=== PATIENT | female | born 1960 | race Caucasian/White ===

== ENCOUNTER 2021-07-03 18:57 | Emergency (ER) | payer SELFPAY ==
[2021-07-03 19:04] VITALS: PULSE 74; RESP 20; TEMP 36.9; O2SAT 95; BMI 32.4
--- NOTE | 2021-07-03 19:24 | XRR_ITS ---
PROCEDURE INFORMATION: Exam: XR Right Wrist Exam date and time: 07/03/2021 7:40 PM Age: 60 years old Clinical indication: Pain; Wrist; Right; Additional info: Fall, injury, get mid forearm TECHNIQUE: Imaging protocol: XR Right wrist. Views: 3 or more views. COMPARISON: No relevant prior studies available. FINDINGS: Bones/joints: Normal. Soft tissues: Normal. XR/XR wrist RT min 3V* [id number] IMPRESSION: No acute findings.
--- NOTE | 2021-07-03 19:24 | XRR_ITS ---
PROCEDURE INFORMATION: Exam: XR Right Elbow Exam date and time: 07/03/2021 7:40 PM Age: 60 years old Clinical indication: Pain; Elbow; Right; Additional info: Fall, pain, get mid forearm TECHNIQUE: Imaging protocol: XR Right elbow. Views: 3 or more views. COMPARISON: CR (CHEST, ) 07/03/2021 7:36 PM FINDINGS: Bones/joints: There is a mildly impacted transverse fracture of the radial neck. A small joint effusion is present. Soft tissues: Normal. XR/XR elbow RT min 3V* [id number] IMPRESSION: Mildly impacted transverse fracture of the radial neck.
--- NOTE | 2021-07-03 19:24 | XRR_ITS ---
PROCEDURE INFORMATION: Exam: XR Right Shoulder Exam date and time: 07/03/2021 7:36 PM Age: 60 years old Clinical indication: Pain; Shoulder; Right; Additional info: Fall, pain TECHNIQUE: Imaging protocol: XR Right shoulder. Views: 2 or more views. COMPARISON: No relevant prior studies available. FINDINGS: Bones/joints: Normal. Soft tissues: Normal. XR/XR shoulder RT min 2V* [id number] IMPRESSION: No acute findings.
--- NOTE | 2021-07-03 19:25 | W.ED.FALL ---
HPI - Fall General: Chief Complaint: Fall Stated Complaint: Right arm pain from fall Time Seen by Provider: 07/03/21 19:13 Source: patient Mode of arrival: ambulatory Limitations: no limitations History of Present Illness: Patient is a 60-year-old female who presents to ED today for evaluation of her right upper extremity injury following a fall. Patient states she tripped over an uneven surface in her house and fell. She is not sure how she landed on the right upper extremity but complains of pain throughout the arm. She denies any other injury sustained during her fall. MD complaint: fall Onset (ago): hour(s) Fall from: standing Fall witnessed: yes, by family Place fall occurred: home Loss of consciousness: None Prolonged down time: no Symptoms prior to fall: none Context: tripped/slipped Location of injury - extremities: Right: shoulder, arm, elbow and forearm Associated symptoms-after fall: Reports no associated symptoms; Denies chest pain, headache(s) or neck pain Review of Systems Eyes: Denies: change in vision Card: Denies: chest pain or palpitations Resp: Denies: dyspnea Musc: Reports: extremity pain (R UE); Denies: neck pain, back pain or extremity swelling Neuro: Denies: headache(s), numbness in extremities, weakness in extremities or sensory changes Physical Exam Const: COMMON NORMALS: no acute distress, patient oriented x3, no limitations and alert GENERAL APPEARANCE: cooperative ORIENTATION/CONSCIOUSNESS: Yes awake, Yes oriented to person, Yes oriented to place and Yes oriented to time HENMT: COMMON NORMALS: normocephalic and atraumatic HEAD & SCALP: normal to inspection, normocephalic and atraumatic FACE & SINUS: normal facial exam Neck/C-Spine: COMMON NORMALS: full ROM CERVICAL SPINE: No pain with cervical ROM and No Cervical spine tenderness Chest: COMMONS NORMALS: normal inspection of the chest and normal palpation of entire chest wall Resp: COMMON NORMALS: normal respiratory effort and clear to auscultation bilaterally AUSCULTATION: clear to auscultation bilaterally Cardio: COMMON NORMALS: regular rate and regular rhythm RATE: regular rate RHYTHM: regular rhythm Back/Pelvis: COMMON NORMALS: thoracic and lumbar spine normal to inspection, no thoracic nor lumbar tenderness and thoraco-lumbar ROM normal Extremity: COMMON NORMALS: capillary refill normal, no joint enlargement and no clubbing, cyanosis or edema RIGHT UPPER EXTREMITY: Yes shoulder joint, Yes upper arm, Yes elbow joint, Yes lower arm and Yes wrist OTHER: pt has pain throughout her R UE and doesn't seem to be able to localize much unfortunately; she does admit that most of her discomfort seems to be focused around the elbow but has limited ROM of her shoulder as well as pain with palpation of forearm/wrist; her humerus and hand seem to be okay with palpation; no swelling or deformity noted anywhere on the extremity; NV intact Neuro: FRANC COMA SCALE: document GCS findings [place] coma scale eye opening: Spontaneous Franc coma scale verbal response: Orientated [place] coma scale motor response: Obey commands [place] coma scale total score: 15 COMMON NORMALS: patient oriented x3, moves all extremities, no focal motor deficits and no sensory deficits noted SENSORIUM/ORIENTATION: Yes alert, Yes oriented to person, Yes oriented to place and Yes oriented to time Skin: COMMON NORMALS: no rashes or lesions noted GENERAL SKIN EXAM: no rashes or lesions noted TRAUMA: no lacerations or abrasions Course Vital Signs: Vital signs: Vital Signs Temperature 98.5 F 07/03/21 19:04 Pulse Rate 80 07/03/21 20:17 Respiratory Rate 18 07/03/21 20:17 Blood Pressure 189/85 07/03/21 20:17 Pulse Oximetry 98 07/03/21 20:17 MDM - Fall Medical Decision Making XRs of R UE obtained and show radial head fracture. Patient will be placed on posterior elbow/sling and information placed to have her follow with orthopedics. Discharge Plan Discharge Patient Disposition: Home Clinical Impression: Closed fracture of head of right radius Qualifiers: Encounter type: initial encounter Fracture alignment: nondisplaced Qualified Code(s): S52.124A - Nondisplaced fracture of head of right radius, initial encounter for closed fracture Condition: Stable Prescriptions: New hydrocodone-acetaminophen 5-325 mg tablet 1 tab PO Q6H PRN (Reason: pain) Qty: 20 0RF Discharge Orders: Discharge ED (Routine); Ordered 07/03/21 Ordered By: Anali Melchor Referrals: Sorin Campos MD [Primary Care Provider] - Patient Instructions: Elbow Fracture (ED) Coding Level of Care Code ED [facility] [facility] [employer] Fwd Exam Comprehensive
[2021-07-03 19:29] VITALS: BP 214/89
[2021-07-03 20:17] VITALS: BP 189/85; PULSE 80; RESP 18; O2SAT 98
--- NOTE | 2021-07-04 10:04 | DCPLANNER ---
Addendum entered by Jennyfer Garcia 07/24/21 20:20: Patient had a follow up appointment scheduled for 07.05.21 with Lee Masterson at ortho - patient did attend appointment. Addendum entered by Jennyfer Garcia 07/05/21 07:46: Patient has a follow up appointment scheduled for June at 2:00 with Lee BUSTILLOS, [facility]. Clinic will call patient with appointment information. Original Note: clinical laboratory manager had message to schedule a follow up appointment for patient with ortho. clinical laboratory manager sent patients information to the front staff at ortho. Patients information will be printed and reviewed. Clinic will call patient with appointment information.
== END 2021-07-03 20:20 | disposition home or self-care (01) ==
PROVIDERS: Emergency Provider Physician Assistant; PCP Family Medicine
DX: S52.124A Nondisplaced fracture of head of right radius, initial encounter for closed fracture (principal); W01.0XXA Fall on same level from slipping, tripping and stumbling without subsequent striking against object, initial encounter
CPT/HCPCS: 29105; 73030; 73080; 73110; 99283

== ENCOUNTER → 2021-07-05 13:41 | Outpatient (BNVA) | payer SELFPAY | PROVIDERS: PCP Family Medicine; Referring Provider Physician Assistant; Visit Provider Physician Assistant | DX: S52.121A Displaced fracture of head of right radius, initial encounter for closed fracture (principal); X58.XXXA Exposure to other specified factors, initial encounter | CPT/HCPCS: 73070 ==

== ENCOUNTER → 2021-07-24 13:33 | Outpatient (BNVA) | payer SELFPAY | PROVIDERS: PCP Family Medicine; Visit Provider Physician Assistant | DX: S52.121A Displaced fracture of head of right radius, initial encounter for closed fracture (principal); X58.XXXA Exposure to other specified factors, initial encounter | CPT/HCPCS: 73080 ==

== ENCOUNTER → 2021-08-21 10:16 | Outpatient (BNVA) | payer SELFPAY | PROVIDERS: PCP Family Medicine; Visit Provider Physician Assistant | DX: S52.121A Displaced fracture of head of right radius, initial encounter for closed fracture (principal); X58.XXXA Exposure to other specified factors, initial encounter | CPT/HCPCS: 73080 ==

== ENCOUNTER 2022-01-10 15:35 | Outpatient (CLI) | payer SELFPAY ==
--- NOTE | 2022-01-10 16:02 | XR_ITS ---
WS: [id number] Mandible series, 5 views, 01/10/2022 Clinical Data: fall w/ facial trauma, Comparison: None. Findings: The mandibular ramus and symphysis are intact. No fractures or dislocations are seen. The temporomand ibular joints are within the articular fossa. The maxilla shows no abnormalities. The patient is antonia veloz. XR/XR mandible min 4V [id number] Impression: Negative mandible series.
== END 2022-01-10 15:36 | disposition home or self-care (01) ==
PROVIDERS: PCP Family Medicine; Visit Provider Family Medicine
DX: R68.84 Jaw pain (principal); W19.XXXA Unspecified fall, initial encounter
CPT/HCPCS: 70110

== ENCOUNTER → 2022-07-23 13:41 | Outpatient (BNVA) | payer SELFPAY | PROVIDERS: PCP Family Medicine; Visit Provider Family Medicine | DX: M19.90 Unspecified osteoarthritis, unspecified site (principal) | CPT/HCPCS: 85025; 85651; 86140; 86160; 86162; 86235; 86255; 86376; 86431 ==

== ENCOUNTER → 2022-08-19 15:41 | Outpatient (BNVA) | payer SELFPAY | PROVIDERS: PCP Family Medicine; Visit Provider Family Medicine | DX: D72.819 Decreased white blood cell count, unspecified (principal) | CPT/HCPCS: 85025; 86140 ==

== ENCOUNTER → 2022-09-19 12:37 | Outpatient (BNVA) | payer SELFPAY | PROVIDERS: PCP Family Medicine; Visit Provider Family Medicine | DX: D72.819 Decreased white blood cell count, unspecified (principal) | CPT/HCPCS: 85025 ==

== ENCOUNTER 2022-10-23 13:48 | Oncology outpatient (recurring) (ONCR) | payer SELFPAY ==
[2022-10-23 16:00] LABS: Reticulocyte % 2.1 % (0.5-2.0)
[2022-10-23 16:34] LABS: Ferritin 91 ng/mL (15-150)
[2022-10-23 16:50] LABS: Folate Level 10.4 ng/mL (4.8-37.3); Vitamin B12 515 pg/mL (232-1245)
[2022-10-23 16:52] LABS: Hepatitis A Antibody IgM Non-Reactive (Nonreactive); Hepatitis B Core AB, Total Non-Reactive (Nonreactive); Hepatitis B Surface AB 6.6 (11.5-1000); Hepatitis B Surface Antigen Non-Reactive (Nonreactive)
[2022-10-25 14:36] LABS: EBV Early Antigen AB IGG >150.00 U/mL; EBV IGG TEST >750.00 U/mL; EBV IGM TEST <36.00 U/mL
[2022-10-29 10:40] LABS: Erythropoietin 10.9 mIU/mL (2.6-18.5)
== END 2022-10-28 23:59 | disposition home or self-care (01) ==
PROVIDERS: PCP Family Medicine; Visit Provider Internal Medicine Medical Oncology
DX: D72.819 Decreased white blood cell count, unspecified (principal); D64.9 Anemia, unspecified; D69.6 Thrombocytopenia, unspecified
CPT/HCPCS: 36415; 82607; 82668; 82728; 82746; 85045; 86663; 86664; 86665; 86705; 86706; 86709; 87340

== ENCOUNTER 2022-10-31 07:08 | Outpatient (CLI) | payer SELFPAY ==
--- NOTE | 2022-10-31 07:45 | US_ITS ---
WS: [id number] Complete ABDOMINAL ULTRASOUND HISTORY: Leukopenia and thrombocytopenia COMPARISON: 12/11/2006 Liver: 16.9 cm in length. Normal size liver and echogenicity. No bile duct dilatation or mass. Portal Vein: Normal hepatopetal flow with monophasic waveform. Gallbladder: Status post cholecystectomy. CBD: 0.3 cm Pancreas: Normal size and echogenicity. Right kidney: 9.2 cm x 4.9 x 5.6 cm. Cortex:1.3 cm. Normal size and echogenicity. No hydronephrosis or mass. Left kidney: 9.9 cm x 4.6 cm x 4.4 cm. Cortex: 1.1 cm. Normal size and echogenicity. No hydronephrosis or mass. Spleen: Spleen is enlarged measuring 15.5 cm in length. Normal concavity persists at the hilum. No sp lenic mass. No adjacent fluid. Aorta and IVC: Unremarkable abdominal aorta and IVC. US/US abdomen complete* [id number] Impression: 1. Moderate splenomegaly. Spleen measures 15.5 cm in length. Normal appearing spleen was noted on a prior CT from 2006. 2. Prior cholecystectomy. 3. Otherwise negative.
== END 2022-10-31 07:09 | disposition home or self-care (01) ==
PROVIDERS: PCP Family Medicine; Visit Provider Internal Medicine Medical Oncology
DX: D72.819 Decreased white blood cell count, unspecified (principal); R16.1 Splenomegaly, not elsewhere classified
CPT/HCPCS: 76700

== ENCOUNTER → 2022-12-19 12:00 | Outpatient (BNVA) | payer SELFPAY | PROVIDERS: PCP Family Medicine; Visit Provider Family Medicine | DX: D69.6 Thrombocytopenia, unspecified (principal); D64.9 Anemia, unspecified; F41.9 Anxiety disorder, unspecified; I10 Essential (primary) hypertension | CPT/HCPCS: 85025 ==

== ENCOUNTER → 2023-02-04 10:06 | Outpatient (BNVA) | payer SELFPAY | PROVIDERS: PCP Family Medicine; Visit Provider Internal Medicine Rheumatology | DX: Z79.899 Other long term (current) drug therapy (principal); M19.90 Unspecified osteoarthritis, unspecified site; Z11.1 Encounter for screening for respiratory tuberculosis; Z11.59 Encounter for screening for other viral diseases; M45.6 Ankylosing spondylitis lumbar region; M17.11 Unilateral primary osteoarthritis, right knee | CPT/HCPCS: 36415; 73130; 73562; 73630; 80076; 82306; 82565; 83520; 85025; 85651; 86140; 86200; 86480; 86704; 86803; 86812; 87340 ==

== ENCOUNTER 2023-04-02 12:17 | Outpatient (CLI) | payer SELFPAY ==
[2023-04-02 12:41] LABS: Basophils # 0.1 10^3/uL (0.0-0.1); Basophils % 1.2 %; Eosinophils # 0.2 10^3/uL (0.0-0.8); Eosinophils % 4.3 %; Hematocrit 33.5 % (36-47); Lymphocytes % 20.2 %; Mean Corpuscular Hemoglobin 28.9 pg (27-33); Mean Platelet Volume 9.3 fL (7.4-10.4); Monocytes # 0.4 10^3/uL (0.2-0.9); Monocytes % 7.4 %; Neutrophils # 3.23 10^3/uL (1.8-7.7); Neutrophils % 66.5 %; Nucleated Red Blood Cells % 0 %; Platelet Count 189 10^3/cmm (157-399); Red Blood Count 3.94 10^6/uL (3.85-5.65); Red Cell Distribution Width 14.8 % (12.1-15.1); White Blood Count 4.86 10^3/uL (3.29-11.43)
[2023-04-02 13:06] LABS: Alanine Aminotransferase 11 U/L (0-33); Albumin Level 3.7 g/dL (3.5-5.2); Alkaline Phosphatase 84 U/L (35-105); Aspartate Amino Transferase 18 U/L (0-32); C Reactive Protein 19.6 mg/L (0.0-4.9); Globulin 3.6 g/dL (1.3-4.6); Glomerular Filtration Rate 35.2 mL/min (90-130); Total Bilirubin 1.1 mg/dL (0.15-1.2); Total Protein 7.3 g/dL (6.6-8.7)
== END 2023-04-02 12:18 | disposition home or self-care (01) ==
LOC: LAB 12:18
PROVIDERS: PCP Family Medicine; Visit Provider Internal Medicine Rheumatology
DX: Z79.899 Other long term (current) drug therapy (principal); M19.90 Unspecified osteoarthritis, unspecified site
CPT/HCPCS: 36415; 80076; 82565; 85025; 86140

== ENCOUNTER 2023-04-10 10:46 | Outpatient (CLI) | payer OTHER, SELFPAY ==
[2023-04-10 11:26] LABS: Basophils # 0.1 10^3/uL (0.0-0.1); Basophils % 1.4 %; Eosinophils # 0.4 10^3/uL (0.0-0.8); Eosinophils % 7.1 %; Hematocrit 33.3 % (36-47); Lymphocytes # 1.2 10^3/uL (0.8-4.8); Lymphocytes % 22.8 %; Mean Corpuscular HGB Conc 32.7 g/dL (30-55); Mean Corpuscular Hemoglobin 28.5 pg (27-33); Mean Corpuscular Volume 87.2 fl (85-98); Mean Platelet Volume 9.5 fL (7.4-10.4); Monocytes # 0.4 10^3/uL (0.2-0.9); Monocytes % 7.9 %; Neutrophils # 3.03 10^3/uL (1.8-7.7); Neutrophils % 59.6 %; Nucleated Red Blood Cells % 0 %; Platelet Count 183 10^3/cmm (157-399); Red Blood Count 3.82 10^6/uL (3.85-5.65); Red Cell Distribution Width 14.5 % (12.1-15.1); White Blood Count 5.08 10^3/uL (3.29-11.43)
[2023-04-10 11:42] LABS: Alanine Aminotransferase 15 U/L (0-33); Albumin Level 3.7 g/dL (3.5-5.2); Alkaline Phosphatase 90 U/L (35-105); Aspartate Amino Transferase 23 U/L (0-32); Blood Urea Nitrogen 8 mg/dL (8-23); Globulin 3.6 g/dL (1.3-4.6); Glomerular Filtration Rate 72.7 mL/min (90-130); Total Bilirubin 0.5 mg/dL (0.15-1.2); Total Protein 7.3 g/dL (6.6-8.7)
== END 2023-04-10 10:47 | disposition home or self-care (01) ==
LOC: LAB 10:50
PROVIDERS: PCP Family Medicine; Visit Provider Internal Medicine Rheumatology
DX: M19.90 Unspecified osteoarthritis, unspecified site (principal); Z79.899 Other long term (current) drug therapy
CPT/HCPCS: 36415; 80076; 82565; 84520; 85025; 86140

== ENCOUNTER 2023-05-08 14:23 | Outpatient (CLI) | payer OTHER, SELFPAY ==
--- NOTE | 2023-05-08 14:26 | XR_ITS ---
WS: [id number] XR wrist RT 2V [id number] REASON FOR EXAM: right wrist pain FINDINGS: No fracture identified. Mild to moderate narrowing of the radial scaphoid joint with moderate subchondral of the radius. Intercarpal joints are normal. No abnormality of the carpal bones. IMPRESSION: No acute abnormality. 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
== END 2023-05-08 14:24 | disposition home or self-care (01) ==
LOC: RAD 14:23
PROVIDERS: PCP Family Medicine; Visit Provider Family Medicine
DX: M79.89 Other specified soft tissue disorders (principal); M19.031 Primary osteoarthritis, right wrist; S52.124D Nondisplaced fracture of head of right radius, subsequent encounter for closed fracture with routine healing; X58.XXXD Exposure to other specified factors, subsequent encounter; I95.9 Hypotension, unspecified
CPT/HCPCS: 73100; 80053; 85007; 85025; 85651; 86140

== ENCOUNTER 2023-05-09 10:45 | Inpatient (IN) | payer SELFPAY ==
[2023-05-09] VITALS (7 sets, daily range): BP systolic 119–152; BP diastolic 57–73; PULSE 90–110; RESP 16–19; TEMP 37.1; O2SAT 92–97; BMI 32.8
--- NOTE | 2023-05-09 11:47 | W.ED.RECABL ---
HPI - Recheck/Abnormal Lab/Rx General: Chief Complaint: Recheck/Abnormal Lab/Rx Stated Complaint: dr campos sent, abnormal labs Time Seen by Provider: 05/09/23 11:23 History of Present Illness: 62-year-old female who presents to the emergency room at the urging of her primary care physician secondary to lab work. She says over the last few weeks she has had swelling in her shoulder that is gone down her arm and into her wrist. She had extensive lab work done yesterday to work this up by her primary care provider. She was post have an ultrasound today, but was called and told to come to the emergency room for admission because of abnormal lab work. My review of labs from yesterday shows a sodium of 122. She has been feeling weak. No documented fevers. No cough. No abdominal pain. No vomiting. BUN and creatinine were 35 and 1.3. Hemoglobin is 9.7. She does not report any recent black tarry stools. [facility] ED PFSH: Medical History (Updated 05/09/23 @ 17:08 by Eri Gaines MD) Thrombocytopenia Lupus Anxiety Restless leg syndrome Hypertension Fracture of radial head, right, closed FH: bilateral hip replacements Immunization counseling High risk medication use Pancytopenia Inflammatory arthritis Depression Surgical History History of delivery x2 Family History Other Unknown family medical history Social History Smoking and tobacco/nicotine status: never used tobacco/nicotine Alcohol intake: never Course Vital Signs: Vital signs: Vital Signs Temperature 98.7 F 05/09/23 11:12 Pulse Rate 104 H 05/09/23 16:09 Respiratory Rate 16 05/09/23 16:09 Blood Pressure 134/70 05/09/23 16:09 Pulse Oximetry 93 05/09/23 16:09 Oxygen Delivery Me thod Room Air 05/09/23 11:12 MDM - Recheck/Abnormal Lab/Rx Medical Decision Making Medical decision making: Differential diagnosis including but not limited to: Quite a complex patient. Initial issues were with right arm swelling and pain. Also with weakness. Sent with abnormal lab work primarily hyponatremia. Repeating a CBC and a BMP here today. Urinalysis and drug screen are being ordered. Review of lab work shows no leukocytosis. Stable anemia at 9.6. She has a sodium of 122. I have no previous sodium readings. Her BUN and creatinine continue to rise from yesterday she is 54 and 2 today. Drug screen shows benzodiazepines. CT of the abdomen pelvis and chest without contrast. 1. Extensive intramuscular edema involving the LEFT shoulder musculature with mild subcutaneous soft tissue induration extending to the LEFT lower neck. No visualized fractures of the LEFT shoulder although incompletely visualized. No evidence of osteomyelitis. Consider vascular ultrasound for DVT and superficial thrombophlebitis. 2. Lungs are well aerated with slight subsegmental atelectasis in the lung bases. No other acute chest findings. 3. Hepatomegaly and splenomegaly with evidence of portal venous hypertension. Recommend correlation with liver function tests. 4. Prior cholecystectomy. 5. Noncontrast kidneys appear normal. No hydronephrosis or renal cortical atrophy. 6. No other acute findings. Lab Data 05/09/23 11:42 05/09/23 11:42 Laboratory Results WBC 5.46 10^3/uL (3.29-11.43) 05/09/23 11:42 RBC 3.26 10^6/uL (3.85-5.65) L 05/09/23 11:42 Hgb 9.60 g/dL (11.27-16.99) L 05/09/23 11:42 Hct 28.3 % (36-47) L 05/09/23 11:42 MCV 86.8 fl (85-98) 05/09/23 11:42 MCH 29.4 pg (27-33) 05/09/23 11:42 MCHC 33.9 g/dL (30-55) 05/09/23 11:42 RDW 13.9 % (12.1-15.1) 05/09/23 11:42 Plt Count 187 10^3/cmm (157-399) 05/09/23 11:42 MPV 10.3 fL (7.4-10.4) 05/09/23 11:42 Neut % (Auto) 85.6 % 05/09/23 11:42 Lymph % (Auto) 5.3 % 05/09/23 11:42 [place] % (Auto) 3.8 % 05/09/23 11:42 Eos % (Auto) 2.2 % 05/09/23 11:42 Baso % (Auto) 0.9 % 05/09/23 11:42 Neut # (Auto) 4.67 10^3/uL (1.8-7.7) 05/09/23 11:42 Lymph # (Auto) 0.3 10^3/uL (0.8-4.8) L 05/09/23 11:42 Frederick # (Auto) 0.2 10^3/uL (0.2-0.9) 05/09/23 11:42 Eos # (Auto) 0.1 10^3/uL (0.0-0.8) 05/09/23 11:42 Baso # (Auto) 0.1 10^3/uL (0.0-0.1) 05/09/23 11:42 Nucleated RBC % (auto) 0 % 05/09/23 11:42 Nucleated RBCs # 0.0 /100WBC 05/09/23 11:42 ESR 49 mm/hr (0-15) H 05/09/23 11:40 Specimen Type Arterial 05/09/23 12:00 Sample Site Radial, right 05/09/23 12:00 ABG pH 7.44 (7.35-7.45) 05/09/23 12:00 ABG pCO2 25.9 mmHg (35-45) L 05/09/23 12:00 ABG pO2 71.6 mmHg (80.0-100.0) L 05/09/23 12:00 ABG PO2/FiO2 Ratio 0 05/09/23 12:00 ABG HCO3 17.5 mmol/L (22-26) L 05/09/23 12:00 ABG O2 Saturation 95.9 05/09/23 12:00 ABG Base Excess -5.5 mmol/L (-2.0-2.0) L 05/09/23 12:00 Roc Test Pos 05/09/23 12:00 A-a O2 Gradient 5.7 mmHg (5-10) 05/09/23 12:00 Hematocrit 31.5 % (37-47) L 05/09/23 12:00 Hgb O2 Saturation 94.2 % (95-100) L 05/09/23 12:00 Carboxyhemoglobin 1.3 %THgb (0.4-20.1) 05/09/23 12:00 Methemoglobin 0.6 % (0.4-1.5) 05/09/23 12:00 Total Hemoglobin 10.3 g/dL (12-16) L 05/09/23 12:00 Sodium 124.0 mmol/L (131-143) L 05/09/23 12:00 Potassium 3.8 mmol/L (3.5-5.0) 05/09/23 12:00 Glucose 198.0 mg/dL (70-115) H 05/09/23 12:00 Ionized Calcium 1.1 mmol/L (1.1-1.4) 05/09/23 12:00 O2 Delivery Device Room air 05/09/23 12:00 FiO2 21.0 % 05/09/23 12:00 Metal Neutralizer ID [place] 05/09/23 12:00 Sodium 122 mmol/L (136-145) L 05/09/23 11:42 Potassium 4.1 mmol/L (3.5-5.1) 05/09/23 11:42 Chloride 87 mmol/L (98-107) L 05/09/23 11:42 Carbon Dioxide 16 mmol/L (22-29) L 05/09/23 11:42 Anion Gap 23.1 (5-19) H 05/09/23 11:42 BUN 54 mg/dL (8-23) H 05/09/23 11:42 Creatinine 2.0 mg/dL (0.5-0.9) H 05/09/23 11:42 GFR Calculation 25.2 mL/min (90-130) L 05/09/23 11:42 Glucose 208 mg/dL (65-115) H 05/09/23 11:42 Calculated Osmolality 275 mOsm/kg (285-295) L 05/09/23 11:42 Calcium 8.1 mg/dL (8.5-10.5) L 05/09/23 11:42 Urine Color Yellow (Yellow) 05/09/23 11:50 Urine Appearance Hazy (CLEAR) A 05/09/23 11:50 Urine pH 5 (5-7) 05/09/23 11:50 Ur Specific [place] 1.020 (1.005-1.030) 05/09/23 11:50 Urine Protein Trace (Negative) 05/09/23 11:50 Urine Glucose (UA) Norm (Normal) 05/09/23 11:50 Urine Ketones 1+ (Negative) H 05/09/23 11:50 Urine Blood 3+ (Negative) H 05/09/23 11:50 Urine Nitrate Negative (Negative) 05/09/23 11:50 Urine Bilirubin 1+ (Negative) H 05/09/23 11:50 Urine Urobilinogen 1 mg/dL (Negative) H 05/09/23 11:50 Ur Leukocyte Esterase 1+ (Negative) H 05/09/23 11:50 Urine RBC 15-25 /hpf (0-2) H 05/09/23 11:50 Urine WBC >100 /hpf (0-5) H 05/09/23 11:50 Ur Squamous Epith Cells 55-80 /hpf (0-5) H 05/09/23 11:50 Amorphous Sediment Not Reportable 05/09/23 11:50 Urine Bacteria 2+ /hpf (NONE) H 05/09/23 11:50 Urine Opiates Screen Negative ng/mL (Negative) 05/09/23 11:50 Ur Barbiturates Screen Negative ng/mL (Negative) 05/09/23 11:50 Ur Phencyclidine Scrn Negative ng/mL (Negative) 05/09/23 11:50 Ur Amphetamines Screen Negative ng/mL (Negative) 05/09/23 11:50 U Benzodiazepines Scrn Positive ng/mL (Negative) H 05/09/23 11:50 Urine Cocaine Screen Negative ng/mL (Negative) 05/09/23 11:50 U Marijuana (THC) Screen Negative ng/mL (Negative) 05/09/23 11:50 All radiology interpretation(s) finalized by discharge Other Data - IV fluids. IV Rocephin. -I discussed the patient with the hospitalist on-call who is admitting the patient. - Discussed findings and plan with patient. Answered any questions. - All laboratory values were reviewed and interpreted personally by myself, the ER physician - All imaging was reviewed and interpreted personally by myself, the ER physician. - Evaluation and treatment of this problem were appropriate in the emergency setting Discharge Plan Discharge Patient Disposition: Admitted As Inpatient Admit Provider: Anil Reed Clinical Impression: UTI (urinary tract infection), Hyponatremia, Renal failure Condition: Stable Coding Level of Care Code ED Pin Puller for [facility]
[2023-05-09 11:53] LABS: Basophils # 0.1 10^3/uL (0.0-0.1); Basophils % 0.9 %; Eosinophils # 0.1 10^3/uL (0.0-0.8); Eosinophils % 2.2 %; Hematocrit 28.3 % (36-47); Lymphocytes # 0.3 10^3/uL (0.8-4.8); Lymphocytes % 5.3 %; Mean Corpuscular HGB Conc 33.9 g/dL (30-55); Mean Corpuscular Hemoglobin 29.4 pg (27-33); Mean Corpuscular Volume 86.8 fl (85-98); Mean Platelet Volume 10.3 fL (7.4-10.4); Monocytes # 0.2 10^3/uL (0.2-0.9); Monocytes % 3.8 %; Neutrophils # 4.67 10^3/uL (1.8-7.7); Neutrophils % 85.6 %; Nucleated Red Blood Cells % 0 %; Platelet Count 187 10^3/cmm (157-399); Red Blood Count 3.26 10^6/uL (3.85-5.65); Red Cell Distribution Width 13.9 % (12.1-15.1); White Blood Count 5.46 10^3/uL (3.29-11.43)
[2023-05-09] MEDS: sodium chloride 0.9% 1,000 ML 999 ML IV (12:06)
[2023-05-09 12:07] LABS: ABG PCO2 25.9 mmHg (35-45); ABG PH Result 7.44 (7.35-7.45); Alveolar-Arterial Oxygen Gradi 5.7 mmHg (5-10); Arterial Blood Gas Hematocrit 31.5 % (37-47); Base Excess ABG -5.5 mmol/L (-2.0-2.0); Blood Gas Allen Test Pos; Blood Gas Operator Identificat WALCI; Blood Gas Sample Site Radial, right; Blood Gas Sample Type Arterial; Carboxyhemoglobin 1.3 %THgb (0.4-20.1); HCO3 ABG 17.5 mmol/L (22-26); HGB O2 Sat 94.2 % (95-100); Ionized Calcium Level - ABG 1.1 mmol/L (1.1-1.4); Methemoglobin 0.6 % (0.4-1.5); Oxygen Device ROOM AIR; Oxygen Saturation ABG 95.9; PO2 ABG 71.6 mmHg (80.0-100.0); PO2 FiO2 Ratio Arterial Blood 0; Potassium Level - ABG 3.8 mmol/L (3.5-5.0); Total Hemoglobin 10.3 g/dL (12-16)
[2023-05-09 12:13] LABS: Slide Review Slide Review Perform
[2023-05-09 12:27] LABS: Add Urine Culture? No; Bacteria Urine 2+ /hpf; Bilirubin Urine 1+ (Negative); Blood Urine 3+ (Negative); Glucose Urine UA Norm (Normal); Ketones Urine 1+ (Negative); Leukocyte Esterase Urine 1+ (Negative); Nitrate Urine Negative (Negative); Protein Urine Trace (Negative); RBC Urine 15-25 /hpf (0-2); Squamous Epithelial Cell Urine 55-80 /hpf (0-5); Urine Appearance Hazy (CLEAR); Urine Color Yellow (Yellow); Urobilinogen Urine 1 mg/dL (Negative); WBC Urine >100 /hpf (0-5); pH Urine 5 (5-7)
[2023-05-09 12:38] LABS: Anion Gap 23.1 (5-19); Blood Urea Nitrogen 54 mg/dL (8-23); Calcium 8.1 mg/dL (8.5-10.5); Carbon Dioxide 16 mmol/L (22-29); Chloride 87 mmol/L (98-107); Glomerular Filtration Rate 25.2 mL/min (90-130); Glucose 208 mg/dL (65-115); Osmolality Calculated 275 mOsm/kg (285-295); Potassium 4.1 mmol/L (3.5-5.1); Sodium 122 mmol/L (136-145)
--- NOTE | 2023-05-09 12:43 | CT_ITS ---
WS: [id number] CT CHEST, ABDOMEN, AND PELVIS TECHNIQUE: Noncontrast CT of the chest, abdomen, and pelvis with coronal and sagittal reformatted abhilash ges. CLINICAL INFORMATION: shoulder pain, renal failure COMPARISON: None. DLP: 1053.[address] scans at [facility] use at least one of these dose optimization techniques: automated e xposure control; mA and/or kV adjustment per patient size (includes targeted exams where dose is matc hed to clinical indication); or iterative reconstruction. CT CHEST: Diffuse soft tissue and intramuscular edema involving the LEFT shoulder musculature. Small amount of induration in the subcutaneous soft tissues. Recommend correlation for infection and cellulitis. No v isualized fractures but LEFT shoulder is incompletely visualized on this study. Consider ultrasound t o assess for thrombus and thrombophlebitis. No evidence of osteomyelitis in the visualized LEFT shoul yandel structures. Slight soft tissue induration in the LEFT subpectoral soft tissues and LEFT lower nec k. Lungs are well aerated. Subsegmental atelectasis in the lung bases. Normal caliber thoracic aorta. No mediastinal or hilar lymphadenopathy. No focal pneumonia or pleural fluid. CT ABDOMEN AND PELVIS Hepatomegaly. Noncontrast spleen demonstrates splenomegaly measuring 15.5 cm [id number]. Tiny esoph ageal hiatal hernia. Cholecystectomy clips. Fatty atrophy of the pancreas. Numerous portosystemic col laterals and varices in the upper abdomen and in the RIGHT abdomen suspicious for portal venous hyper tension. Recommend correlation with liver function tests. Normal caliber abdominal aorta. Mild aortic calcification. Adrenal glands are normal. Noncontrast kid neys appear normal. No significant atrophy. No hydronephrosis. No obstructing renal or ureteral calcu li. Bilateral THAs degrade images in the pelvis. Sigmoid diverticulosis. IMPRESSION: 1. Extensive intramuscular edema involving the LEFT shoulder musculature with mild subcutaneous soft tissue induration extending to the LEFT lower neck. No visualized fractures of the LEFT shoulder alt yessy incompletely visualized. No evidence of osteomyelitis. Consider vascular ultrasound for DVT and superficial thrombophlebitis. 2. Lungs are well aerated with slight subsegmental atelectasis in the lung bases. No other acute belle st findings. 3. Hepatomegaly and splenomegaly with evidence of portal venous hypertension. Recommend correlation with liver function tests. 4. Prior cholecystectomy. 5. Noncontrast kidneys appear normal. No hydronephrosis or renal cortical atrophy. 6. No other acute findings.
[2023-05-09 12:53] LABS: Amphetamines Screen Urine Negative (Negative); Barbiturates Screen Urine Negative (Negative); Benzodiazepines Screen Urine Positive (Negative); Cocaine Screen Urine Negative (Negative); Opiate Screen Urine Negative (Negative); PCP Screen Urine Negative (Negative); THC Screen Urine Negative (Negative)
--- NOTE | 2023-05-09 13:04 | PC.PHAR ---
pt and pts family verified pts medications-pt states she hasnt taken her blood pressure meds,prednisone or effexor in 2 weeks-pt states put her meds on hold 05/08/23-pt states when she was taking her hydralazine 2 weeks ago that she was taking 50mg bid and 25mg bid [facility] states not filled 50mg bid but states filled 25mg bid 04/08/23 and picked up states have a 25mg bid ready to pick up attendant filled 05/05/23-claudia @ [facility] states that eric from office called in Effexor plain 75mg daily filled 02/07/23 90d/s, rx written 08/19/22 effexor xr 75mg daily -pt states she takes lorazepam 1mg takes 2 tabs (2mg) hs - rx filled 04/04/23 30d/s 1mg po qam,1mg at noon and 2mg hs-notes are made in the pharmacy comments
[2023-05-09] MEDS: cefTRIAXone 1,000 MG in sodium chloride 0.9% (plus) 50 ML 100 MG IV (13:12)
--- NOTE | 2023-05-09 13:39 | USCV_ITS ---
Pamela Arrington Age: 62 Gender: F : 1960 Exam Date: 05/09/2023 13:31 Ordering Phys: Eri Gaines MD Technologist: Exam Location: [facility] [place] Indication: Swelling, edema HISTORY: Left arm pain, swelling, edema PROCEDURES: Venous duplex imaging was performed in only the left upper extremity. The following venous structures were evaluated: internal jugular vein, subclavian vein, axillary vein, and brachial veins. In addition, the basilic vein, cephalic vein, radial vein, and ulnar vein. Serial compression, augmentation maneuvers, and spectral Doppler flow evaluation were performed. FINDINGS: All other veins of the left upper extremity demonstrate normal flow dynamics with no evidence of deep vein thrombosis or superficial thrombophlebitis. CONCLUSIONS No evidence of thrombus of the left upper extremity veins. Chauncey Hernández MD (Electronically Signed) Final Date: 09 May 2023 17:24 S
--- NOTE | 2023-05-09 16:25 | P.HP_ITS ---
Providers/Chief Complaint 2 Primary Care Provider: Sorin Bone MD Chief Complaint: dr bone sent, abnormal labs History of Present Illness Pamela Arrington is a 62 year old female with past medical history of hypertension, rheumatoid arthritis currently on prednisone 5 mg twice daily for last month and a half, sent into the ER today by her primary care office because of abnormality in the lab which was drawn yesterday. As per patient for last couple of weeks she has noticed swelling and pain, left going all the way from shoulder down to the elbow resulting in weakness. She is not sure what brought up on the swelling. Denies any trauma, injury, animal bites. As per the family member she has also been getting transfused and weak since that time. She presented to her primary care's office for the same pain few days ago and she was given NSAIDs and Flexeril for the same. As per the patient she has not been taking any of her regular medications except for painkillers for last 2 weeks as nobody in her house except herself manages her medications and she was too weak and slightly confused to set up her pillbox. Day before yesterday while sitting in the couch she slipped off and landed on her right hand since then she has been having pain in her right wrist as well. She went to the primary care's office again for the same complaints and at that time blood work was done on which she was found to have hyponatremia with sodium down to 129 and creatinine up to 2 and she was asked to come to the ER. She does give history of decreased oral intake of foods but increased intake of water for last few weeks along with nausea but no vomiting. Does give history of decreased urine output with on and off dysuria but no diarrhea. For the left arm swelling patient denies any trauma, fall, animal or insect bite, history of breast cancer, breast mass but does give history of a blood draw earlier in March but she is not sure which arm the blood was taken from. Today the ER patient lethargic but not confused, mildly tachypneic, complaining of generalized malaise mostly in the left arm which is swollen from shoulder to elbow and right wrist along with left ankle. Review of Systems 2 General: Reports: 10 or more systems reviewed and unremarkable except in HPI and below Const: Denies: fever(s), chills, body aches, change in appetite, change in weight, malaise, night sweats, diaphoresis, change in sleep pattern, daytime sleepiness or snoring Eyes: Denies: change in vision, blurry vision, photophobia, eye discomfort or eye discharge ENMT: Denies: throat pain, enlarged tonsils, hoarseness, mouth pain, oral sores, dry mouth, tinnitus, nasal congestion or post nasal drip Card: Denies: chest pain, palpitations, irregular heart rhythm, edema, swelling of feet/ankles, lightheadedness, syncope, pre-syncope, dyspnea on exertion, orthopnea, leg pain with exertion or acrocyanosis Resp: Denies: dyspnea, productive cough, non-productive cough, wheezing, stridor, pain on inspiration, change in phlegm color, hemoptysis or chest congestion GI: Denies: abdominal pain, nausea, vomiting, hematemesis, coffee ground emesis, dysphagia, heartburn, diarrhea, constipation, bloating, GI cramping, change in bowel habits, pain on defecation, hematochezia or melena : Denies: flank pain, dysuria, urinary frequency, urinary urgency, urinary hesitancy, nocturia or hematuria Musc: Denies: neck pain, back pain, extremity pain, joint pain, joint swelling, joint redness, joint stiffness or limited range of motion Neuro: Denies: headache(s), numbness in extremities, weakness in extremities, sensory changes, lack of coordination, difficulty walking, frequent falls, dizziness, vertigo, confusion, Slurred speech present, difficulty communicating thoughts or seizure-like activity Psych: Denies: anxiety, depression, mood swings, panic attacks, hopelessness or irritability Endo: Denies: polyuria, polydipsia, tired all the time, cold intolerance, excessive sweating, flushing or heat intolerance Isra/Lymph: Denies: easy bruising or easy bleeding All/Imm: Denies: tongue swelling, facial swelling or acute wheezing Medications/Allergies Home Medications Medication Instructions Recorded Confirmed Last Taken Type hydralazine 50 mg tablet 50 mg PO BID #60 tabs 12/11/21 05/09/23 2 Weeks Ago Rx ~04/25/23 med on hold hydralazine 25 mg tablet 25 mg PO BID #60 tabs 10/15/22 05/09/23 2 Weeks Ago Rx ~04/25/23 med on hold prednisone 5 mg tablet 5 mg PO BID #60 tabs 04/02/23 05/09/23 Unknown Rx cyclobenzaprine 10 mg tablet 10 mg PO TID PRN muscle spasm #30 05/01/23 05/09/23 05/07/23 Rx tabs MED ON HOLD ondansetron 4 mg disintegrating 4 mg PO Q8H PRN nausea and 05/01/23 05/09/23 Unknown Rx tablet vomiting #30 tabs acetaminophen 500 mg tablet 500 - 1,000 mg PO Q6H PRN Pain 05/09/23 05/09/23 Unknown History diphenhydramine HCl 25 mg tablet 100 mg PO BEDTIME 05/09/23 05/09/23 05/07/23 History (Sleep Aid (diphenhydramine)) 50 mg ibuprofen 200 mg tablet 400 mg PO Q6H PRN Pain 05/09/23 05/09/23 Unknown History lisinopril 20 1 tab PO DAILY 05/09/23 05/09/23 2 Weeks Ago History mg-hydrochlorothiazide 12.5 mg ~04/25/23 tablet MED ON HOLD lorazepam 1 mg tablet 2 mg PO BEDTIME 05/09/23 05/09/23 05/07/23 History MED ON HOLD venlafaxine 75 mg tablet 75 mg PO DAILY 05/09/23 05/09/23 2 Weeks Ago History ~04/25/23 see pharmacy comment Allergies Allergy/AdvReac Type Severity Reaction Status Date / Time methotrexate Allergy Unknown ALGY-Rash Verified 05/09/23 12:57 PFSH Acute 2 PFSH: Medical History (Updated 05/09/23 @ 20:24 by Anil Reed MD) Thrombocytopenia Lupus Anxiety Restless leg syndrome Hypertension Fracture of radial head, right, closed FH: bilateral hip replacements Immunization counseling High risk medication use Pancytopenia Inflammatory arthritis Depression Surgical History History of delivery x2 Family History Other Unknown family medical history Social History Smoking and tobacco/nicotine status: never used tobacco/nicotine Alcohol intake: never Vitals/I&O/Wt Last Vital Signs Temp 98.7 F 05/09/23 11:12 Pulse 104 H 05/09/23 16:09 Resp 16 05/09/23 16:09 BP 134/70 05/09/23 16:09 Pulse Ox 93 05/09/23 16:09 O2 Del Method Room Air 05/09/23 11:12 Weight last 48 hrs Weight 90.718 kg Physical Exam 2 Narrative: General: Able to give history by herself, AO x3, dehydrated, sick appearing, chapped lips, in distress because of left shoulder pain, not moving her arms much HEENT: PERRLA, pupils bilaterally equal and reactive Chest: Normal vesicular breath sounds, no added sounds, equal but decreased air entry bilaterally CVS: S1-S2 regular, no murmurs, no tachycardia, no gallops, no rubs Abdomen: Soft, nontender, no organomegaly, bowel sounds present Neuro: No focal deficits, no facial deformity, AO x3, power 5/5 in all limbs Extremity: Left arm from shoulder down to elbow slightly tender and warm to touch without any erythema, more swelling on the medial aspect, tender shoulder joint left side, right wrist swollen and tender to touch but no limitation in range of mobility. Data 05/10/23 04:20 05/10/23 04:20 A&P Assessment and plan (1) Altered mental status: Most likely in setting of hyponatremia, dehydration and metabolic encephalopathy in setting of MAGDALENE. Patient also has not taken her steroids for last couple of weeks. Cannot rule out in setting of sepsis from UTI and possible cellulitis of the left arm. Frequent reorientation. Continue to monitor. Check TSH, vitamin B12 (2) Sepsis: SIRS: Tachycardic, tachypneic Source: Cellulitis of the left arm, UTI End organ damage: Acute kidney injury, altered mental status, hypotension Lactic acid within normal limits Patient did not receive full 30 mL/kg BW as to have a risk of fluid overload in setting of acute kidney injury Check blood culture, urine culture, MRSA swab, urine Legionella, bacterial antigen, procalcitonin. For now start on broad-spectrum antibiotics with IV vancomycin, IV Zosyn. Also started on azithromycin as below. Antibiotic should cover both cellulitis and UTI. (3) Hyponatremia: In setting of dehydration. Check urine lites, urine creatinine. Serum osmolality appreciated to be low. Normal saline at 100 cc/h. Repeat BMP in AM. (4) Acute kidney injury: Most likely in setting of dehydration along with home use of NSAIDs. Patient also at baseline is supposed to be on lisinopril, hydrochlorothiazide combination though she has not taken those medications for last few days. Medical reconciliation done for nephrotoxic drugs. Renal nondialysis diet Monitor BMP daily. Fluid as above. CT abdomen pelvis negative for obstructive nephropathy. Does have mild metabolic acidosis. Start on sodium bicarbonate 650 mg oral 3 times daily for now. (5) Hypotension: Borderline blood pressures. Most likely in setting of being of steroids recently but cannot rule out in setting of sepsis. Hydrocortisone 100 mg IV stat. Will check cortisol levels prior to steroids. Most likely restart home dose of prednisone in AM. Goal blood pressure less than 140/90 mmHg with mean over 65. Hold off on home antihypertensives for now. Probably (6) Left arm swelling: Unknown cause for now. Patient does have some signs of cellulitis. CT abdomen pelvis consistent with edema of subcutaneous tissue and musculature. Patient denies any trauma or insect bite. Patient does have pets. Check CT shoulder up to elbow without contrast. If not helpful will plan for MRI. Dopplers negative for DVT or SVT. For now start on broad-spectrum antibiotics with IV vancomycin, Zosyn and azithromycin to also cover for Pasteurella. (7) Cellulitis of left upper extremity: (8) UTI (urinary tract infection): Appreciate urinalysis. Check urine culture, blood culture. (9) Metabolic acidosis: In setting of acute kidney injury with dehydration. Monitor daily. (10) Chronic use of steroids: Check cortisol level. IV hydrocortisone one-time 100 mg stat followed by 5 mg twice daily of home dose from tomorrow depending on the clinical picture. Blood pressure do not improve we will continue IV hydrocortisone. (11) Anemia: Target hemoglobin more than 7. Continue to monitor. Check iron panel, vitamin B12 and folate levels. (12) Hypertension: Goal blood pressure less than 140/90 mmHg with mean over 65. Blood pressure soft for now. Hold off on home dose of hydralazine, lisinopril hydrochlorothiazide for now. Will restart as per goal blood pressures. Plan CODE STATUS: Discussed in detail with patient and patient's spouse at bedside. Spouse will be the DPOA. DNR/DNI. Regular diet Lovenox for DVT prophylaxis Protonix OPD prophylaxis Attestations 2 Medical Necessity Statement*: Admission for more than 2 midnights for management of acute kidney injury leading to metabolic acidosis, hyponatremia in setting of sepsis from left arm cellulitis, UTI in a patient on chronic steroids for inflammatory arthritis Diagnoses Altered mental status R41.82 Sepsis A41.9 Hyponatremia E87.1 Acute kidney injury N17.9 Hypotension I95.9 Left arm swelling M79.89 Cellulitis of left upper extremity L03.114 UTI (urinary tract infection) N39.0 Metabolic acidosis E87.20 Chronic use of steroids Anemia D64.9 Hypertension I10
[2023-05-09 16:54] LABS: Erythrocyte Sedimentation Rate 49 mm/hr (0-15)
[2023-05-09 17:10] LABS: Potassium, Radom Urine 45 mmol/L; Urine Creatinine 231 mg/dL (28-217); Urine Random Chloride 11 mmol/L; Urine Random Sodium 29 mmol/L
[2023-05-09 17:12] LABS: Cortisol Random 39.21 ug/dL (2.47-19.5)
[2023-05-09 17:15] LABS: Eosinophil Urine No Eosinophils Seen; Urine Eosinophil Count 0 (0-0)
[2023-05-09 17:23] LABS: C Reactive Protein 268.7 mg/L (0.0-4.9)
[2023-05-09] MEDS: hydrocortisone 100 mg/2 mL SDV IVP (17:42)
[2023-05-09] MEDS: pantoprazole 40 mg SDV IVP (18:36)
[2023-05-09] MEDS: enoxaparin 40 mg/0.4 mL Syringe SUBCUT (18:37)
[2023-05-09] MEDS: sodium chloride 0.9% 1,000 ML 100 ML IV (18:43)
--- NOTE | 2023-05-09 18:43 | CTR_ITS ---
PROCEDURE INFORMATION: Exam: CT Left Upper Extremity Without Contrast, Shoulder Exam date and time: 05/09/2023 8:51 PM Age: 62 years old Clinical indication: Pain and abnormal findings; Abnormal lab test; Other: Crp 268.70; Patient HX: Swelling of left shoulder with pain radiating to elbow. Crp of 268.70; Additional info: Left shoulder swelling, pain in chest wall and arm, , please include upto elbow TECHNIQUE: Imaging protocol: Computed tomography of the left upper extremity without contrast. Exam focused on the shoulder. Radiation optimization: All CT scans at this facility use at least one of these dose optimization techniques: automated exposure control; mA and/or kV adjustment per patient size (includes targeted exams where dose is matched to clinical indication); or iterative reconstruction. COMPARISON: [place] [id number] 05/09/2023 12:56 PM RADIATION DOSE METRICS: Total DLP (mGy-cm): 784.04 FINDINGS: Bones/joints: Mild acromioclavicular osteoarthritis. Normal glenohumeral joint. No fracture or destructive bony lesion. Facet arthropathy is partly visualized in the cervical spine. Visualized left ribs are normal. Soft tissues: There is a large fluid collection posterior and superior to the humeral head with a water density attenuation coefficient. Components of the fluid collection track into both the supraspinatus and infraspinatus muscles. Margins of the fluid collection are challenging to define on this noncontrast exam. There is edema and heterogeneous soft tissue density material in the supraclavicular fossa of unclear significance. There is subcutaneous edema surrounding the shoulder. No abnormal soft tissue gas. No radiopaque foreign body. CT/CT shoulder LT wo con* [id number] IMPRESSION: 1. There is a large fluid collection posterior to the humeral head which appears to be within and perhaps tracking into the supraspinatus and infraspinatus muscles. No convincing joint effusion. The fluid collection is water density. Margins are challenging to demonstrate without intravenous contrast. Ultrasound may be helpful. 2. There is edema and soft tissue distortion in the fat surrounding the shoulder and extending into the supraclavicular fossa, etiology unclear. Correlate with any history of recent trauma.
--- NOTE | 2023-05-09 18:46 | CTR_ITS ---
PROCEDURE INFORMATION: Exam: CT Left Upper Extremity Without Contrast, Upper Arm Exam date and time: 05/09/2023 8:56 PM Age: 62 years old Clinical indication: Upper arm; Patient HX: Swelling of left shoulder with pain radiating to elbow. Crp of 268.70; Additional info: Left shoulder swelling, pain in chest wall and arm TECHNIQUE: Imaging protocol: Computed tomography of the left upper extremity without contrast. Exam focused on the upper arm. Radiation optimization: All CT scans at this facility use at least one of these dose optimization techniques: automated exposure control; mA and/or kV adjustment per patient size (includes targeted exams where dose is matched to clinical indication); or iterative reconstruction. COMPARISON: CT shoulder LT wo con* [id number] 05/09/2023 8:51 PM RADIATION DOSE METRICS: Total DLP (mGy-cm): 1308.35 FINDINGS: Bones/joints: Intact humerus. Please see separate report regarding fluid collection surrounding the shoulder joint. Soft tissues: Distal to the shoulder, the musculature appears normal without abnormal fluid collection. No soft tissue gas or radiopaque foreign body. CT/CT humerus LT wo con* [id number] IMPRESSION: Intact humerus. Distal to the shoulder there are no abnormal fluid collections, and there is no soft tissue gas or radiopaque foreign body. Please see CT shoulder report regarding periarticular fluid collection.
[2023-05-09 18:56] LABS: Iron 19 ug/dL (37-145); Percent Saturation 10.9 % (20-50); Thyroid Stimulating Hormone 2.28 uIU/mL (0.27-4.20); Total Iron Binding Capacity 173 mcg/dl; Unsaturated Iron Binding 154 ug/dL (112-347)
[2023-05-09] MEDS: vancomycin 1,250 MG/250 ML PIGGYBACK 250 MG IV (19:15)
[2023-05-09] MEDS: sodium bicarbonate 650 mg Tablet PO (21:34)
[2023-05-09] MEDS: piperacillin-tazobactam 3.375 GM in sodium chloride 0.9% (plus) 50 ML IV (21:34)
[2023-05-10] VITALS (8 sets, daily range): BP systolic 131–159; BP diastolic 55–72; PULSE 65–89; RESP 18–19; TEMP 36.3–36.7; O2SAT 95–98
[2023-05-10] MEDS: piperacillin-tazobactam 3.375 GM in sodium chloride 0.9% (plus) 50 ML IV ×3 (04:11→20:44)
[2023-05-10 05:09] LABS: Basophils % 0.5 %; Eosinophils % 0.5 %; Lymphocytes # 0.3 10^3/uL (0.8-4.8); Lymphocytes % 7.5 %; Mean Corpuscular HGB Conc 33.3 g/dL (30-55); Mean Corpuscular Hemoglobin 29.1 pg (27-33); Mean Corpuscular Volume 87.3 fl (85-98); Mean Platelet Volume 10.3 fL (7.4-10.4); Monocytes # 0.2 10^3/uL (0.2-0.9); Monocytes % 5.8 %; Neutrophils # 3.48 10^3/uL (1.8-7.7); Neutrophils % 83.5 %; Nucleated Red Blood Cells % 0 %; Platelet Count 144 10^3/cmm (157-399); Red Blood Count 2.75 10^6/uL (3.85-5.65); Red Cell Distribution Width 14.3 % (12.1-15.1); White Blood Count 4.16 10^3/uL (3.29-11.43)
[2023-05-10 05:26] LABS: Estmated Average Glucose 126
[2023-05-10 05:30] LABS: Alanine Aminotransferase 24 U/L (0-33); Albumin Level 2.5 g/dL (3.5-5.2); Alkaline Phosphatase 95 U/L (35-105); Anion Gap 17.5 (5-19); Aspartate Amino Transferase 36 U/L (0-32); Blood Urea Nitrogen 44 mg/dL (8-23); Calcium 7.9 mg/dL (8.5-10.5); Carbon Dioxide 18 mmol/L (22-29); Chloride 99 mmol/L (98-107); Globulin 3.9 g/dL (1.3-4.6); Glomerular Filtration Rate 45.5 mL/min (90-130); Glucose 149 mg/dL (65-115); Magnesium 2.2 mg/dL (1.7-2.3); Osmolality Calculated 286 mOsm/kg (285-295); Phosphorus 4.9 mg/dL (2.5-4.5); Potassium 3.5 mmol/L (3.5-5.1); Sodium 131 mmol/L (136-145); Total Bilirubin 0.4 mg/dL (0.15-1.2); Total Protein 6.4 g/dL (6.6-8.7)
[2023-05-10 05:32] LABS: Chol HDL Ratio 7.78 mg/dL (0.0-4.40); Cholesterol 140 mg/dL (0-200); HDL Cholesterol 18 mg/dL (60-100); LDL Cholesterol Calculated 95 mg/dL (50-129); LDL HDL Ratio 5.28 RATIO (0.00-3.22); Triglycerides 137 mg/dL (0-150)
[2023-05-10] MEDS: sodium chloride 0.9% 1,000 ML 100 ML IV ×2 (05:36→15:54)
[2023-05-10 05:42] LABS: Folate Level 8.6 ng/mL (4.8-37.3)
[2023-05-10] MEDS: venlafaxine 75 mg Tablet PO (08:34)
[2023-05-10] MEDS: sodium bicarbonate 650 mg Tablet PO ×3 (08:34→20:44)
[2023-05-10] MEDS: acetaminophen 325 mg Tablet 650 MG PO ×2 (08:37→23:22)
[2023-05-10] MEDS: predniSONE 5 mg Tablet PO ×2 (11:11→18:02)
--- NOTE | 2023-05-10 11:51 | PC.CHAP ---
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 visit [] Patient/Family/Request visit [] Outpatient visit [] Follow-up visit [] Physician referral [] Code/Alert [] Routine visit [] Staff referral [] Actively dying [] Patient sleeping [] Family support [] [] Out of room [] Palliative care [] [] Receiving care in room [] Pre-surgical visit [] Trauma [] Long length of stay [] ICU visit [] Other: Relational/Emotional Strength [] Patient feels connected with others/family/visitors/staff [] Distress [] Loneliness/isolation [] Abandonment Spirituality of Patient [] Person of Am[place] [] Attends Church of their [place] [] Believes in Prayer [] Reads Bible or Yazdanism materials [] There are Spiritual issues to be addressed Gallery [employer] 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 Interventions [] Prayer [] Active listening [] Non-anxious presence [] Spiritual/emotional support [] Crisis/trauma care [] Spiritual counseling [] Bereavement support [] Provided bereavement packet [] Provided Bible/devotional materials [] Provided toy/stuffed animal, coloring book to patient or family member [] Provided Communion [] Anointing/[place] [] Salvation [] Completed spiritual assessment [] Other: Impact on Illness or Injury [] Angry [] Fearful [] Anxious [] Often cries [] Exhaustion [] Unable to work [] Unable to attend restorationism [] Unable to walk/stand [] Unable to read [] Unable to drive [] Unable to eat/drink [] Unable to sleep [] Unable to be with family [] Patient intubated [] Other: Summary Prayed with and over patient and 1 family member Time spent with patient
--- NOTE | 2023-05-10 13:44 | P.PN_ITS ---
Subjective 2 Subjective: No acute events overnight. Today morning seen with family at bedside. Patient states he is feeling better than yesterday. Looks a lot more awake and alert. Denies any nausea, vomiting, headache. Breathing better. Saturating well on room air. Has remained hemodynamically stable and afebrile. Less pain in the right wrist today. Vitals/I&O/Wt Last Vital Signs Temp 97.8 F 05/10/23 12:21 Pulse 67 05/10/23 12:21 Resp 19 H 05/10/23 12:21 BP 139/66 05/10/23 12:21 Pulse Ox 98 05/10/23 12:21 O2 Del Method Room Air 05/10/23 12:21 05/09/23 05/10/23 05/10/23 22:59 06:59 14:59 Intake Total 1530 / 1530 820 / 2350 410 / 410 Output Total 1000 / 1000 600 / 1600 Balance 530 / 530 220 / 750 410 / 410 Weight last 48 hrs Weight 95.481 kg Weight 93.979 kg Weight 89.675 kg Weight 90.718 kg Physical Exam 2 Narrative: General: Able to give history by herself, AO x3, dehydrated, sick appearing, chapped lips, in distress because of left shoulder pain, not moving her arms much HEENT: PERRLA, pupils bilaterally equal and reactive Chest: Normal vesicular breath sounds, no added sounds, equal but decreased air entry bilaterally CVS: S1-S2 regular, no murmurs, no tachycardia, no gallops, no rubs Abdomen: Soft, nontender, no organomegaly, bowel sounds present Neuro: No focal deficits, no facial deformity, AO x3, power 5/5 in all limbs Extremity: Left arm from shoulder down to elbow slightly tender and warm to touch without any erythema, more swelling on the medial aspect, tender shoulder joint left side, right wrist swollen and tender to touch but no limitation in range of mobility. Urinary Catheter Management: Nicole: Cath Placed During This Visit: yes Reason for Continuing Indwelling Catheter: Acute Urinary Retention or Obstruction Urinary Catheter Date of Insertion: 05/09/23 Urinary Catheter Time of Insertion: 18:56 Data 05/10/23 04:20 05/10/23 04:20 Micro: Microbiology 05/09/23 21:20 Blood Culture - Preliminary Blood SPECIMEN COLLECTED 05/09/23 21:15 Blood Culture - Preliminary Blood SPECIMEN COLLECTED A&P Assessment and plan (1) Altered mental status: Resolving. Most likely in setting of hyponatremia, dehydration and metabolic encephalopathy in setting of MAGDALENE. Patient also has not taken her steroids for last couple of weeks. Cannot rule out in setting of sepsis from UTI and possible cellulitis of the left arm. Frequent reorientation. Continue to monitor. Appreciate TSH, vitamin B12 (2) Sepsis: Resolving. SIRS: Tachycardic, tachypneic Source: Cellulitis of the left arm, UTI End organ damage: Acute kidney injury, altered mental status, hypotension Lactic acid within normal limits Patient did not receive full 30 mL/kg BW as to have a risk of fluid overload in setting of acute kidney injury Check blood culture, urine culture, MRSA swab, urine Legionella, bacterial antigen, procalcitonin. For now start on broad-spectrum antibiotics with IV vancomycin, IV Zosyn. Also started on azithromycin as below. Antibiotic should cover both cellulitis and UTI. (3) Hyponatremia: Sodium levels improving. Up to 131. In setting of dehydration. Appreciate urine lites, urine creatinine. Normal saline at 100 cc/h. Repeat BMP in AM. (4) Acute kidney injury: Creatinine down to 1.2. Most likely in setting of dehydration along with home use of NSAIDs. Patient also at baseline is supposed to be on lisinopril, hydrochlorothiazide combination though she has not taken those medications for last few days. Medical reconciliation done for nephrotoxic drugs. Renal nondialysis diet Monitor BMP daily. Fluid as above. CT abdomen pelvis negative for obstructive nephropathy. Does have mild metabolic acidosis. Continue with sodium bicarbonate 650 mg oral 3 times daily for now. (5) Hypotension: Blood pressures improving. Goal mean blood pressure more than 65 mmHg borderline blood pressures. Appreciate cortisol levels. Restart prednisone 5 mg twice daily at home dose. Goal blood pressure less than 140/90 mmHg with mean over 65. Hold off on home antihypertensives for now. (6) Left arm swelling: Appreciate CT of the shoulder. Consistent with fluid collection posterior to the humeral head tracking into supra and infraspinatus muscle with edema extending to supraclavicular fossa not resolving the joint. Will consult orthopedics. They recommend patient to have IR drainage for further workup and to rule out infected fluid collection. Unfortunately IR not available over the weekend. No concerns for septic joint for now. Physical therapy. MRI joint when available. Doppler negative for DVT or SVT. Continue with broad-spectrum antibiotics with IV vancomycin and Zosyn and azithromycin for now. Azithromycin to also cover for Pasteurella. (7) Cellulitis of left upper extremity: (8) UTI (urinary tract infection): Appreciate urinalysis. Follow urine culture, blood culture. (9) Metabolic acidosis: In setting of acute kidney injury with dehydration. Monitor daily. (10) Chronic use of steroids: Restarted home dose of prednisone. (11) Anemia: Target hemoglobin more than 7. Continue to monitor. Appreciate iron panel, vitamin B12 and folate levels. (12) Hypertension: Goal blood pressure less than 140/90 mmHg with mean over 65. Blood pressure soft for now. Hold off on home dose of hydralazine, lisinopril hydrochlorothiazide for now. Will restart as per goal blood pressures. Plan CODE STATUS: Discussed in detail with patient and patient's spouse at bedside. Spouse will be the DPOA. DNR/DNI. Renal nondialysis dysphagia level 5 diet Lovenox for DVT prophylaxis Protonix OPD prophylaxis PT/OT Attestations 2 Medical Necessity Statement*: Requires further hospitalization for management of UTI, left arm cellulitis with fluid collection around the left shoulder joint while infection is ruled out with IR drainage, acute kidney injury and hyponatremia Diagnoses Altered mental status R41.82 Sepsis A41.9 Hyponatremia E87.1 Acute kidney injury N17.9 Hypotension I95.9 Left arm swelling M79.89 Cellulitis of left upper extremity L03.114 UTI (urinary tract infection) N39.0 Metabolic acidosis E87.20 Chronic use of steroids Anemia D64.9 Hypertension I10
--- NOTE | 2023-05-10 16:00 | MRR_ITS ---
PROCEDURE INFORMATION: Exam: MR Left Upper Extremity Joint Without Contrast; Shoulder Exam date and time: 05/10/2023 4:57 PM Age: 62 years old Clinical indication: Pain; Shoulder; Left; Additional info: Left arm swelling and pain TECHNIQUE: Imaging protocol: Magnetic resonance imaging of the left upper extremity without contrast. Exam focused on the shoulder. COMPARISON: CT shoulder LT wo con* [id number] 05/09/2023 8:51 PM FINDINGS: Bones/joints: Glenohumeral articular surfaces are intact. No evidence of fracture. Small glenohumeral joint effusion. No evidence of osteomyelitis or convincing evidence of joint infection. Acromioclavicular articulation is intact without evidence of fracture or ligamentous disruption. Moderate AC joint osteoarthritis with small marginal osteophytes and capsular hypertrophy. Glenoid labrum: Grossly intact. If further detail is clinically warranted, consider correlation with follow-up outpatient MR arthrography. Bursae: Severe subacromial-subdeltoid bursitis. Supraspinatus tendon: Minor low-grade partial-thickness articular sided tear of the distal anterior-mid fibers, approximately 5 mm AP. Mild tendinosis. No high-grade or full-thickness tear. There is edema of the supraspinatus muscle. Infraspinatus tendon: Intact. There is edema of the infraspinatus muscle. Severe bursitis extends along the superficial surface of the infraspinatus/teres minor muscles. Subscapularis tendon: Intact. Teres minor tendon: Intact. There is edema of the teres minor and major muscles. Tendon of biceps brachii: Intact. Glenohumeral ligaments: Intact. Soft tissues: No evidence of fluid collection or hematoma. Severe subacromial-subdeltoid bursitis extends medially into the retroclavicular region where there are lobulations of the bursa and mild adjacent edema of the previous muscle. There is additional muscle edema of the deltoid. MR/MR shoulder LT wo con* [id number] IMPRESSION: 1. Severe subacromial-subdeltoid bursitis. No evidence of osteomyelitis or convincing evidence of joint infection. No evidence of abscess. 2. Multifocal muscle edema, which may be reactive secondary to the markedly inflamed subacromial-subdeltoid bursa. An autoimmune myositis could have a similar appearance in the proper clinical setting. Correlation with serum laboratory findings and rheumatologic evaluation is recommended. Fluid analysis of the bursal fluid may be helpful if clinically warranted. 3. Cuff is intact without high-grade or full-thickness tear. The findings were verbally communicated by telephone with JOVANNY Knox at 6:03 PM CRUISE DIRECTOR on 05/10/2023. The findings were acknowledged and understood.
[2023-05-10] MEDS: diphenhydrAMINE 25 mg Capsule PO (16:41)
[2023-05-10] MEDS: haloperidol inj 5 mg/mL INJ 1 mL 2 MG IVP (16:42)
[2023-05-10] MEDS: enoxaparin 40 mg/0.4 mL Syringe SUBCUT (18:02)
[2023-05-10] MEDS: pantoprazole 40 mg SDV IVP (18:02)
[2023-05-10] MEDS: azithromycin 500 MG in sodium chloride 0.9% 250 ML 250 MG IV (18:02)
[2023-05-10] MEDS: vancomycin 1,250 MG/250 ML PIGGYBACK 250 MG IV (19:03)
[2023-05-11] VITALS (12 sets, daily range): BP systolic 155–175; BP diastolic 69–79; PULSE 67–73; RESP 17–20; TEMP 36.3–36.9; O2SAT 95–97; BMI 36.2
[2023-05-11] MEDS: LORazepam 1 mg Tablet 0.5 MG PO (02:39)
[2023-05-11 03:55] LABS: Basophils % 0.4 %; Eosinophils % 0.4 %; Hematocrit 24.1 % (36-47); Lymphocytes # 0.5 10^3/uL (0.8-4.8); Lymphocytes % 8.8 %; Mean Corpuscular HGB Conc 33.2 g/dL (30-55); Mean Corpuscular Hemoglobin 29.4 pg (27-33); Mean Corpuscular Volume 88.6 fl (85-98); Mean Platelet Volume 10.3 fL (7.4-10.4); Monocytes # 0.3 10^3/uL (0.2-0.9); Monocytes % 5.8 %; Neutrophils # 4.48 10^3/uL (1.8-7.7); Neutrophils % 81.7 %; Nucleated Red Blood Cells % 0 %; Platelet Count 158 10^3/cmm (157-399); Red Blood Count 2.72 10^6/uL (3.85-5.65); Red Cell Distribution Width 14.2 % (12.1-15.1); White Blood Count 5.48 10^3/uL (3.29-11.43)
[2023-05-11 04:12] LABS: Alanine Aminotransferase 21 U/L (0-33); Albumin Level 2.4 g/dL (3.5-5.2); Alkaline Phosphatase 83 U/L (35-105); Aspartate Amino Transferase 31 U/L (0-32); Blood Urea Nitrogen 42 mg/dL (8-23); Calcium 7.6 mg/dL (8.5-10.5); Carbon Dioxide 19 mmol/L (22-29); Chloride 101 mmol/L (98-107); Globulin 3.7 g/dL (1.3-4.6); Glomerular Filtration Rate 50.3 mL/min (90-130); Glucose 103 mg/dL (65-115); Osmolality Calculated 287 mOsm/kg (285-295); Sodium 133 mmol/L (136-145); Total Bilirubin 0.5 mg/dL (0.15-1.2); Total Protein 6.1 g/dL (6.6-8.7)
[2023-05-11 04:13] LABS: Anion Gap 16.6 (5-19); Potassium 3.6 mmol/L (3.5-5.1)
[2023-05-11] MEDS: sodium chloride 0.9% 1,000 ML 100 ML IV (04:18)
[2023-05-11] MEDS: piperacillin-tazobactam 3.375 GM in sodium chloride 0.9% (plus) 50 ML IV ×3 (04:21→21:00)
--- NOTE | 2023-05-11 08:11 | P.CONIM_ITS ---
<Statement entered by Bhavesh Anne DO - 05/11/23 09:09> Patient seen and examined in addition to DEV. Agree with PAs assessment and plan. At this point in time reviewed patient's imaging medical record as well as history and physical at this point in time I have a low suspicion for a clinical infection this definitely appears to be more related to patient's autoimmune/rheumatologic and inflammatory process. Findings on MRI do not appear to be any bit destructive consistent with more infectious nature and more of an inflammatory myositis with noticeable collection of fluid. At this point in time would recommend ruling out infectious process as well as further delineating what this fluid collection is with an IR aspiration. Spoke with primary team and they are getting this set up for patient suspect this will likely be on Friday. Would recommend appropriate cell studies and workup for the fluid cell to check for appropriate fluid cell analysis. Orthopedics will continue to follow and make further recommendations based upon these results. I discussed this in detail with patient as well as family at bedside and through shared decision making they elect to proceed all questions been answered at this time. Thank you for allowing us to partake in the care of this patient. Bhavesh Anne DO Orthopedic surgery Providers/Reason For Consult 2 Consulting Physician/Specialty*: Dr. Anne/orthopedic surgeon Reason for Consult*: Left shoulder and arm swelling, concern for infection Requesting Physician: Dr. Derek MD Attending Physician: Anil Reed MD Primary Care Provider: Sorin Campos MD History of Present Illness History of Present Illness Pamela Arrington is a 62 year old female that is having left shoulder and arm pain and swelling. Orthopedics was consulted to get their recommendation on left shoulder pain and swelling. Patient states she has a history of some kind of rheumatological disorder but they are still working her up to figure out what her diagnosis is. She states that about a month ago she started developing pain in her left shoulder and left upper arm. Denies any injury or trauma to cause pain. She was put on some muscle relaxers and an NSAID but had no relief. She was then put on a course of prednisone and a had no improvement. Doctor then sent her to the emergency department to get admitted for concern of cellulitis. Patient says over the last week her pain has gotten worse and her range of motion in her left shoulder is gotten worse. Reports having temperatures of 99 degrees a couple days over the past week, but no temperatures above 100. Denies any other joint complaints currently. Review of Systems 2 General: Reports: 10 or more systems reviewed and unremarkable except in HPI and below Const: Reports: fever(s) Card: Denies: chest pain Resp: Denies: dyspnea GI: Denies: abdominal pain, nausea or vomiting Musc: Reports: extremity pain (left shoulder and left arm), joint pain (left shoulder), joint swelling (Left shoulder) and limited range of motion (left shoulder) Medications/Allergies Home Medications Medication Instructions Recorded Confirmed Last Taken Type hydralazine 50 mg tablet 50 mg PO BID #60 tabs 12/11/21 05/09/23 2 Weeks Ago Rx ~04/25/23 med on hold hydralazine 25 mg tablet 25 mg PO BID #60 tabs 10/15/22 05/09/23 2 Weeks Ago Rx ~04/25/23 med on hold prednisone 5 mg tablet 5 mg PO BID #60 tabs 04/02/23 05/09/23 Unknown Rx cyclobenzaprine 10 mg tablet 10 mg PO TID PRN muscle spasm #30 05/01/23 05/09/23 05/07/23 Rx tabs MED ON HOLD ondansetron 4 mg disintegrating 4 mg PO Q8H PRN nausea and 05/01/23 05/09/23 Unknown Rx tablet vomiting #30 tabs acetaminophen 500 mg tablet 500 - 1,000 mg PO Q6H PRN Pain 05/09/23 05/09/23 Unknown History diphenhydramine HCl 25 mg tablet 100 mg PO BEDTIME 05/09/23 05/09/23 05/07/23 History (Sleep Aid (diphenhydramine)) 50 mg ibuprofen 200 mg tablet 400 mg PO Q6H PRN Pain 05/09/23 05/09/23 Unknown History lisinopril 20 1 tab PO DAILY 05/09/23 05/09/23 2 Weeks Ago History mg-hydrochlorothiazide 12.5 mg ~04/25/23 tablet MED ON HOLD lorazepam 1 mg tablet 2 mg PO BEDTIME 05/09/23 05/09/23 05/07/23 History MED ON HOLD venlafaxine 75 mg tablet 75 mg PO DAILY 05/09/23 05/09/23 2 Weeks Ago History ~04/25/23 see pharmacy comment Allergies Allergy/AdvReac Type Severity Reaction Status Date / Time methotrexate Allergy Unknown ALGY-Rash Verified 05/09/23 12:57 Current Medications Generic Name Dose Route Start Last Admin Trade Name Jamee PRN Reason Stop Dose Admin Acetaminophen 650 mg 05/09/23 17:34 05/10/23 23:22 Acetaminophen 325 Mg Tablet PO 650 mg Q6H PRN Administration Mild/Mod Pain Or Temp >/= 101 Enoxaparin Sodium 40 mg 05/09/23 17:34 05/10/23 18:02 Enoxaparin 40 Mg/0.4 Ml Syringe SUBCUT 40 mg Q24H SAMANTHA Administration Sodium Chloride 1,000 mls @ 100 mls/hr 05/09/23 17:34 05/11/23 04:18 Sodium Chloride 0.9% IV 100 mls/hr .Q10H SAMANTHA Administration Piperacillin Sod/Tazobactam 50 mls @ 12.5 mls/hr 05/09/23 20:00 05/11/23 04:21 Sod 3.375 gm/ Sodium Chloride IV 12.5 mls/hr Q8H SAMANTHA Administration Protocol Azithromycin 500 mg/ Sodium 250 mls @ 250 mls/hr 05/10/23 18:44 05/10/23 19:30 Chloride IV Infused DAILY SAMANTHA Infusion Protocol Vancomycin/PEG/NADA/Lysine/Water 1,250 mg in 250 mls @ 250 mls/hr 05/09/23 19:00 05/10/23 20:33 Vancocin IV Infused Q24H SAMANTHA Infusion Lorazepam 0.5 mg 05/10/23 10:50 05/11/23 02:39 Lorazepam 1 Mg Tablet PO 0.5 mg BEDTIME PRN Administration insomnia Pantoprazole Sodium 40 mg 05/09/23 17:34 05/10/23 18:02 Pantoprazole 40 Mg Sdv IVP 40 mg Q24H SAMANTHA Administration Prednisone 5 mg 05/10/23 10:50 05/10/23 18:02 Prednisone 5 Mg Tablet PO 5 mg BID SAMANTHA Administration Sodium Bicarbonate 650 mg 05/09/23 21:00 05/10/23 20:44 Sodium Bicarbonate 650 Mg Tablet PO 650 mg TID SAMANTHA Administration Venlafaxine HCl 75 mg 05/10/23 09:00 05/10/23 08:34 Venlafaxine 75 Mg Tablet PO 75 mg DAILY SAMANTHA Administration PFSH Acute 2 PFSH: Medical History (Updated 05/11/23 @ 08:53 by TRESSA Song) Thrombocytopenia Lupus Anxiety Restless leg syndrome Hypertension Fracture of radial head, right, closed FH: bilateral hip replacements Immunization counseling High risk medication use Pancytopenia Inflammatory arthritis Depression Surgical History History of delivery x2 Family History Other Unknown family medical history Social History Smoking and tobacco/nicotine status: never used tobacco/nicotine Alcohol intake: never Vitals/I&O/Wt Last Vital Signs Temp 97.7 F 05/11/23 04:00 Pulse 69 05/11/23 06:00 Resp 18 05/11/23 04:00 BP 155/73 05/11/23 04:00 Pulse Ox 96 05/11/23 04:00 O2 Del Method Room Air 05/11/23 04:00 05/10/23 05/11/23 05/11/23 22:59 06:59 14:59 Intake Total 1670 / 2080 1050 / 3130 Output Total 750 / 750 250 / 1000 Balance 920 / 1330 800 / 2130 Weight last 48 hrs Weight 215 lb 7 oz Weight 210 lb 8 oz Weight 207 lb 3 oz Weight 197 lb 11.2 oz Weight 200 lb Physical Exam 2 Const: COMMON NORMALS: no acute distress and alert Resp: COMMON NORMALS: normal respiratory effort and No retractions Cardio: COMMON NORMALS: Peripheral pulses 2+ throughout PERIPHERAL PULSES: Peripheral pulses 2+ throughout Extremity: NARRATIVE EXTREMITY EXAM: Left shoulder?generalized swelling noted. No erythema or any wound on shoulder. Generalized tenderness of ac joint, posterior, lateral and anterior aspect of shoulder. Very limited range of motion due to severe pain. Patient unable to abduct arm due to pain. Radial pulse 2+. Sensation to hand intact. 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 Fingers are warm and well-perfused. No red streaking seen. Neuro: SENSORIUM/ORIENTATION: Yes alert Skin: GENERAL SKIN EXAM: dry skin Data 05/11/23 03:05 05/11/23 03:05 Micro: Microbiology 05/09/23 21:20 Blood Culture - Preliminary Blood NEGATIVE TO DATE 05/09/23 21:15 Blood Culture - Preliminary Blood NEGATIVE TO DATE A&P Assessment and plan (1) Left arm swelling: (2) Bursitis of left shoulder: Plan Plan: -Medicine is primary -Labs and imaging reviewed -MRI of left shoulder reviewed-Severe subacromial-subdeltoid bursitis. No evidence of osteomyelitis or convincing evidence of joint infection. No evidence of abscess. -Pain control -PT/OT -Low clinical suspicion for infection and at this point appears to be inflammatory (rheumatologic). -Recommendation?GATO Perdue of fluid collection and send to lab for testing. -Ortho will continue following Coding Level of Care Code Acute Code for Chg Fwd Diagnoses Left arm swelling M79.89 Bursitis of left shoulder M75.52 Time Spent (min) 45
[2023-05-11] MEDS: sodium bicarbonate 650 mg Tablet PO (08:43)
[2023-05-11] MEDS: predniSONE 5 mg Tablet PO (08:43)
[2023-05-11] MEDS: azithromycin 500 MG in sodium chloride 0.9% 250 ML 250 MG IV (08:43)
[2023-05-11] MEDS: venlafaxine 75 mg Tablet PO (08:45)
[2023-05-11] MEDS: acetaminophen 325 mg Tablet 650 MG PO (09:01)
[2023-05-11] MEDS: hyDRALAzine 25 mg Tablet PO ×3 (10:31→21:00)
--- NOTE | 2023-05-11 13:35 | P.PN_ITS ---
Subjective 2 Subjective: No acute events overnight. Patient worked with physical therapy today. States she is feeling tired. Seen with spouse at bedside. Denies any nausea, vomiting, headache. Has remained hemodynamically stable and afebrile. Vitals/I&O/Wt Last Vital Signs Temp 98.0 F 05/11/23 11:50 Pulse 73 05/11/23 11:50 Resp 18 05/11/23 11:50 BP 157/69 05/11/23 11:50 Pulse Ox 97 05/11/23 11:50 O2 Del Method Room Air 05/11/23 11:50 05/10/23 05/11/23 05/11/23 22:59 06:59 14:59 Intake Total 1670 / 2080 1050 / 3130 1500 / 1500 Output Total 750 / 750 250 / 1000 Balance 920 / 1330 800 / 2130 1500 / 1500 Weight last 48 hrs Weight 98.702 kg Weight 97.721 kg Weight 95.481 kg Weight 93.979 kg Weight 89.675 kg Physical Exam 2 Narrative: General: AOx3, chronically sick appearing, not dehydrated HEENT: PERRLA, pupils bilaterally equal and reactive Chest: Normal vesicular breath sounds, no added sounds, equal but decreased air entry bilaterally CVS: S1-S2 regular, no murmurs, no tachycardia, no gallops, no rubs Abdomen: Soft, nontender, no organomegaly, bowel sounds present Neuro: No focal deficits, no facial deformity, AO x3, power 5/5 in all limbs Extremity: Left arm from shoulder down to elbow slightly tender and warm to touch without any erythema, more swelling on the medial aspect, tender shoulder joint left side, right wrist swollen and tender to touch but no limitation in range of mobility. Urinary Catheter Management: Nicole: Cath Placed During This Visit: yes Reason for Continuing Indwelling Catheter: Required Immobilization for Trauma or Surgery or Anesthesia Urinary Catheter Date of Insertion: 05/09/23 Urinary Catheter Time of Insertion: 18:56 Data 05/11/23 03:05 05/11/23 03:05 Micro: Microbiology 05/09/23 23:42 Urine Culture - Final Urine,Voided 05/09/23 21:20 Blood Culture - Preliminary Blood NEGATIVE TO DATE 05/09/23 21:15 Blood Culture - Preliminary Blood NEGATIVE TO DATE A&P Assessment and plan (1) Altered mental status: Resolved. Patient is awake and alert. Back to baseline mentation. Most likely in setting of hyponatremia, dehydration and metabolic encephalopathy in setting of MAGDALENE. Patient also has not taken her steroids for last couple of weeks. Cellulitis of the arm is ruled out. Urine culture without any growth. Out of bed to chair. Physical therapy. Appreciate TSH, vitamin B12 (2) Hyponatremia: Sodium levels improving. In setting of dehydration. Appreciate urine lites, urine creatinine. Patient's oral intake is improving. Stop IV fluids. Repeat BMP in AM. (3) Left arm swelling: Appreciate CT shoulder and MRI results. Concerning for significant subacromial/subdeltoid bursitis without any evidence of osteomyelitis or possible joint infection or abscess with multifocal muscle edema markedly and subarachnoid?subdeltoid bursa. Appreciate orthopedic recommendation. Will go ahead with diagnostic IR tap when available on Friday. Orders placed. Discussed the case in detail with patient's outpatient telephone betting clerk Dr. Schulz who is concerned for possible flareup of patient's baseline inflammatory arthritis. Will check CPK, aldolase. Appreciate ESR and CRP on admission. Increase dose of prednisone to 40 mg daily. PT as per orthopedic team. Doppler ruled out DVT/SVT. Continue with broad-spectrum antibiotics for now while infection is completely ruled out though patient does not have any episodes of fever or leukocytosis since admission. (4) Bursitis of left shoulder: (5) Acute kidney injury: Improving. Most likely in setting of dehydration along with home use of NSAIDs. Patient also at baseline is supposed to be on lisinopril, hydrochlorothiazide combination though she has not taken those medications for last few days. Medical reconciliation done for nephrotoxic drugs. Monitor BMP daily. Stopping fluid as above. CT abdomen pelvis negative for obstructive nephropathy. Does have mild metabolic acidosis which is resolving we will hold off on any further sodium bicarbonate 650 mg oral 3 times daily for now. (6) Hypotension: Blood pressure is elevated today. Goal blood pressure less than 140/90 mmHg with mean over 65. Restart home dose of hydralazine 25 mg 3 times daily. Will change medications as per goal. (7) Sepsis: Resolved. SIRS: Tachycardic, tachypneic Source: Cellulitis of the left arm, UTI End organ damage: Acute kidney injury, altered mental status, hypotension Lactic acid within normal limits Patient did not receive full 30 mL/kg BW as to have a risk of fluid overload in setting of acute kidney injury Blood cultures so far negative, MRSA swab pending, urine Legionella, bacterial antigen. Procalcitonin mildly elevated might be in case of acute kidney injury. Repeat Pro-Louis today. For now continue with broad-spectrum antibiotics with IV vancomycin, IV Zosyn. Hold off on any further azithromycin. Antibiotic should cover both cellulitis and UTI. (8) Cellulitis of left upper extremity: (9) UTI (urinary tract infection): Appreciate urinalysis. Follow urine culture, blood culture. (10) Metabolic acidosis: In setting of acute kidney injury with dehydration. Monitor daily. (11) Chronic use of steroids: Prednisone as above. (12) Anemia: Target hemoglobin more than 7. Hemoglobin so far stable. Continue to monitor. Appreciate iron panel, vitamin B12 and folate levels. (13) Hypertension: Goal blood pressure less than 140/90 mmHg with mean over 65. Medications restarted as above. (14) Inflammatory arthritis: Plan CODE STATUS: Discussed in detail with patient and patient's spouse at bedside. Spouse will be the DPOA. DNR/DNI. Regular diet Lovenox for DVT prophylaxis Protonix OPD prophylaxis PT/OT Discharge plan: Most likely can discharge home within next 24 to 48 hours once infection is ruled out. Patient will benefit with home health with physical therapy. Attestations 2 Medical Necessity Statement*: Requires further hospitalization for management of resolving MAGDALENE, hyponatremia in a patient with significant left arm and shoulder swelling and setting of severe subdeltoid/subacromial bursitis while infection is ruled out Diagnoses Altered mental status R41.82 Hyponatremia E87.1 Left arm swelling M79.89 Bursitis of left shoulder M75.52 Acute kidney injury N17.9 Hypotension I95.9 Sepsis A41.9 Cellulitis of left upper extremity L03.114 UTI (urinary tract infection) N39.0 Metabolic acidosis E87.20 Chronic use of steroids Anemia D64.9 Hypertension I10 Inflammatory arthritis M19.90
[2023-05-11] MEDS: predniSONE 20 mg Tablet 40 MG PO (14:55)
[2023-05-11] MEDS: HYDROcodone-acetaminophen 5-325 mg Tablet 1 TAB PO (14:57)
[2023-05-11 15:33] LABS: Creatine Phosphokinase 56 U/L (26-192)
[2023-05-11 15:40] LABS: Procalcitonin 0.79 ng/mL (0-0.5)
[2023-05-11] MEDS: enoxaparin 40 mg/0.4 mL Syringe SUBCUT (17:09)
[2023-05-11] MEDS: pantoprazole 40 mg SDV IVP (17:09)
[2023-05-11] MEDS: vancomycin 1,250 MG/250 ML PIGGYBACK 250 MG IV (18:23)
[2023-05-12] VITALS (9 sets, daily range): BP systolic 128–180; BP diastolic 71–86; PULSE 64–101; RESP 17–20; TEMP 36.3–36.9; O2SAT 94–97
[2023-05-12 03:07] LABS: Basophils % 0.3 %; Hematocrit 25.6 % (36-47); Lymphocytes # 0.5 10^3/uL (0.8-4.8); Lymphocytes % 7.6 %; Mean Corpuscular HGB Conc 32.8 g/dL (30-55); Mean Corpuscular Hemoglobin 29.2 pg (27-33); Mean Corpuscular Volume 88.9 fl (85-98); Monocytes # 0.2 10^3/uL (0.2-0.9); Monocytes % 3.5 %; Neutrophils # 5.23 10^3/uL (1.8-7.7); Neutrophils % 82.9 %; Nucleated Red Blood Cells % 0 %; Platelet Count 189 10^3/cmm (157-399); Red Blood Count 2.88 10^6/uL (3.85-5.65); Red Cell Distribution Width 14.4 % (12.1-15.1); White Blood Count 6.31 10^3/uL (3.29-11.43)
[2023-05-12 03:25] LABS: Alanine Aminotransferase 21 U/L (0-33); Albumin Level 2.5 g/dL (3.5-5.2); Alkaline Phosphatase 93 U/L (35-105); Anion Gap 12.4 (5-19); Aspartate Amino Transferase 29 U/L (0-32); Blood Urea Nitrogen 29 mg/dL (8-23); Calcium 7.9 mg/dL (8.5-10.5); Carbon Dioxide 20 mmol/L (22-29); Chloride 103 mmol/L (98-107); Glomerular Filtration Rate 72.7 mL/min (90-130); Glucose 133 mg/dL (65-115); Osmolality Calculated 282 mOsm/kg (285-295); Potassium 3.4 mmol/L (3.5-5.1); Sodium 132 mmol/L (136-145); Total Bilirubin 0.5 mg/dL (0.15-1.2); Total Protein 6.5 g/dL (6.6-8.7)
[2023-05-12] MEDS: piperacillin-tazobactam 3.375 GM in sodium chloride 0.9% (plus) 50 ML IV ×3 (04:46→20:45)
[2023-05-12] MEDS: LORazepam 1 mg Tablet 0.5 MG PO ×2 (05:31→20:50)
[2023-05-12] MEDS: hyDRALAzine 25 mg Tablet PO ×3 (08:27→20:45)
[2023-05-12] MEDS: predniSONE 20 mg Tablet 40 MG PO (08:27)
[2023-05-12] MEDS: venlafaxine 75 mg Tablet PO (08:27)
--- NOTE | 2023-05-12 09:13 | US_ITS ---
WS: [id number] Ultrasound guided LEFT shoulder aspiration. INDICATION: LEFT shoulder effusion TECHNIQUE: Ultrasound guided LEFT shoulder aspiration FINDINGS: The procedure including risks benefits and complications were discussed with the patient wh o agreed to proceed. Timeout was performed. Patient was prepped and draped in usual sterile fashion. After 1% lidocaine, using ultrasound guidance, an 18-gauge spinal needle was advanced into the fluid collection. 3 passes were made. Approximately 7-8 cc of bloody fluid was aspirated. No immediate comp lications. Fluid sent for requested diagnostic tests. Shoulder effusion appears complex with internal echogenic debris. IMPRESSION: Uncomplicated ultrasound-guided LEFT shoulder aspiration.
--- NOTE | 2023-05-12 14:55 | P.PN_ITS ---
Subjective 2 Subjective: Seen this morning. Going for shoulder aspiration today. at bedside. Vitals/I&O/Wt Last Vital Signs Temp 97.5 F L 05/12/23 12:20 Pulse 69 05/12/23 12:20 Resp 18 05/12/23 12:20 BP 165/73 05/12/23 12:20 Pulse Ox 97 05/12/23 12:20 O2 Del Method Room Air 05/12/23 12:20 05/11/23 05/12/23 05/12/23 22:59 06:59 14:59 Intake Total 660 / 2280 50 / 2330 290 / 290 Output Total 250 / 700 650 / 1350 Balance 410 / 1580 -600 / 980 290 / 290 Weight last 48 hrs Weight 98.021 kg Weight 98.702 kg Weight 97.721 kg Physical Exam 2 Narrative: General: AOx3, Chest: Normal vesicular breath sounds, no added sounds, equal but decreased air entry bilaterally CVS: S1-S2 regular, no murmurs, no tachycardia, no gallops, no rubs Abdomen: Soft, nontender, no organomegaly, bowel sounds present Neuro: No focal deficits, Extremity: Left arm from shoulder down to elbow slightly tender and warm to touch without any erythema, more swelling on the medial aspect, tender shoulder joint left side, right wrist swollen and tender to touch but no limitation in range of mobility. Urinary Catheter Management: Nicole: Cath Placed During This Visit: yes Reason for Continuing Indwelling Catheter: Other Urinary Catheter Date of Insertion: 05/09/23 Urinary Catheter Time of Insertion: 18:56 Data 05/12/23 02:01 05/12/23 02:01 Micro: Microbiology 05/12/23 00:00 Bacterial Antigens - Final Urine Kidney 05/09/23 23:42 Urine Culture - Final Urine,Voided A&P Assessment and plan (1) Altered mental status: Resolved. Patient is awake and alert. Back to baseline mentation. Most likely in setting of hyponatremia, dehydration and metabolic encephalopathy in setting of MAGDALENE. Patient also has not taken her steroids for last couple of weeks. Cellulitis of the arm is ruled out. Urine culture without any growth. Out of bed to chair. Physical therapy. Appreciate TSH, vitamin B12 (2) Hyponatremia: Sodium levels improving. In setting of dehydration. Appreciate urine lites, urine creatinine. Patient's oral intake is improving. Stop IV fluids. Repeat BMP in AM. (3) Left arm swelling: Appreciate CT shoulder and MRI results. Concerning for significant subacromial/subdeltoid bursitis without any evidence of osteomyelitis or possible joint infection or abscess with multifocal muscle edema markedly and subarachnoid?subdeltoid bursa. Appreciate orthopedic recommendation. Will go ahead with diagnostic IR tap when available on Friday. Orders placed. 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 Schulz who is concerned for possible flareup of patient's baseline inflammatory arthritis. Will check CPK, aldolase. Appreciate ESR and CRP on admission. Increase dose of prednisone to 40 mg daily. PT as per orthopedic team. Doppler ruled out DVT/SVT. Continue with broad-spectrum antibiotics for now while infection is completely ruled out though patient does not have any episodes of fever or leukocytosis since admission. (4) Bursitis of left shoulder: (5) Acute kidney injury: Improving. Most likely in setting of dehydration along with home use of NSAIDs. Patient also at baseline is supposed to be on lisinopril, hydrochlorothiazide combination though she has not taken those medications for last few days. Medical reconciliation done for nephrotoxic drugs. Monitor BMP daily. Stopping fluid as above. CT abdomen pelvis negative for obstructive nephropathy. Does have mild metabolic acidosis which is resolving we will hold off on any further sodium bicarbonate 650 mg oral 3 times daily for now. (6) Hypotension: Blood pressure is elevated today. Goal blood pressure less than 140/90 mmHg with mean over 65. Restart home dose of hydralazine 25 mg 3 times daily. Will change medications as per goal. (7) Sepsis: Resolved. SIRS: Tachycardic, tachypneic Source: Cellulitis of the left arm, UTI End organ damage: Acute kidney injury, altered mental status, hypotension Lactic acid within normal limits Patient did not receive full 30 mL/kg BW as to have a risk of fluid overload in setting of acute kidney injury Blood cultures so far negative, MRSA swab pending, urine Legionella, bacterial antigen. Procalcitonin mildly elevated might be in case of acute kidney injury. Repeat Pro-Louis today. For now continue with broad-spectrum antibiotics with IV vancomycin, IV Zosyn. Hold off on any further azithromycin. Antibiotic should cover both cellulitis and UTI. (8) Cellulitis of left upper extremity: (9) UTI (urinary tract infection): Appreciate urinalysis. Follow urine culture, blood culture. (10) Metabolic acidosis: In setting of acute kidney injury with dehydration. Monitor daily. (11) Chronic use of steroids: Prednisone as above. (12) Anemia: Target hemoglobin more than 7. Hemoglobin so far stable. Continue to monitor. Appreciate iron panel, vitamin B12 and folate levels. (13) Hypertension: Goal blood pressure less than 140/90 mmHg with mean over 65. Medications restarted as above. (14) Inflammatory arthritis: Plan CODE STATUS: Discussed in detail with patient and patient's spouse at bedside. Spouse will be the DPOA. DNR/DNI. Regular diet Lovenox for DVT prophylaxis Protonix OPD prophylaxis PT/OT Discharge plan: Most likely can discharge home within next 24 to 48 hours once infection is ruled out. Patient will benefit with home health with physical therapy. Patient going for left shoulder aspiration today ultrasound-guided. Discussed with radiology over the phone. Updated patient on her care as well. Replete potassium She will need an appointment with Dr. Alejandro after discharge. They do have an appointment upcoming this Friday. Attestations 2 Medical Necessity Statement*: Continued hospitalization for left shoulder bursitis. Will go for ultrasound drainage today. Diagnoses Altered mental status R41.82 Hyponatremia E87.1 Left arm swelling M79.89 Bursitis of left shoulder M75.52 Acute kidney injury N17.9 Hypotension I95.9 Sepsis A41.9 Cellulitis of left upper extremity L03.114 UTI (urinary tract infection) N39.0 Metabolic acidosis E87.20 Chronic use of steroids Anemia D64.9 Hypertension I10 Inflammatory arthritis M19.90
[2023-05-12 15:10] LABS: Cyto Order Verification Order Verified
[2023-05-12] MEDS: pantoprazole 40 mg SDV IVP (17:58)
[2023-05-12] MEDS: enoxaparin 40 mg/0.4 mL Syringe SUBCUT (17:58)
[2023-05-12 18:52] LABS: Vancomycin Trough 11.9 ug/mL (10-15)
[2023-05-12] MEDS: vancomycin 1,250 MG/250 ML PIGGYBACK 250 MG IV (18:58)
--- NOTE | 2023-05-12 20:32 | P.PN_ITS ---
Subjective 2 Subjective: Patient seen and examined this evening. Patient states her shoulder is starting to feel better. She started to have some ability to tolerate more increased passive range of motion as well as improvement in her active range of motion. Underwent shoulder aspiration per IR today pending results. Case discussed with hospitalist Vitals/I&O/Wt Last Vital Signs Temp 97.7 F 05/12/23 16:40 Pulse 79 05/12/23 16:40 Resp 20 H 05/12/23 16:40 BP 165/71 05/12/23 16:40 Pulse Ox 96 05/12/23 16:40 O2 Del Method Room Air 05/12/23 16:40 05/12/23 05/12/23 05/12/23 06:59 14:59 22:59 Intake Total 50 / 2330 290 / 290 290 / 580 Output Total 650 / 1350 350 / 350 Balance -600 / 980 290 / 290 -60 / 230 Weight last 48 hrs Weight 216 lb 1.6 oz Weight 217 lb 9.6 oz Weight 215 lb 7 oz Physical Exam 2 Narrative: Left shoulder examination Band-Aids in place from fluid aspiration. There is no signs of erythema or signs of infection improvement in passive range of motion able to tolerate above 90 degrees today. Improvement in active range of motion but still somewhat guarded secondary to pain. Urinary Catheter Management: Nicole: Cath Placed During This Visit: yes Reason for Continuing Indwelling Catheter: Other Urinary Catheter Date of Insertion: 05/09/23 Urinary Catheter Time of Insertion: 18:56 Data 05/12/23 02:01 05/12/23 02:01 Micro: Microbiology 05/12/23 14:40 Gram Stain - Final Other Source 05/12/23 00:00 Bacterial Antigens - Final Urine Kidney A&P Assessment and plan (1) Left arm swelling: (2) Bursitis of left shoulder: Plan Plan: -Medicine is primary -Labs and imaging reviewed -MRI of left shoulder reviewed-Severe subacromial-subdeltoid bursitis. No evidence of osteomyelitis or convincing evidence of joint infection. No evidence of abscess. -Pain control -PT/OT -Low clinical suspicion for infection and at this point appears to be inflammatory (rheumatologic). -Underwent IR aspiration today we will continue to follow results Attestations 2 Medical Necessity Statement*: Ongoing care shoulder pain with severe bursitis and fluid collection IR aspiration today pending results Coding Level of Care Code Acute Code for Chg Fwd Diagnoses Left arm swelling M79.89 Bursitis of left shoulder M75.52
[2023-05-13] VITALS (10 sets, daily range): BP systolic 149–179; BP diastolic 50–83; PULSE 66–82; RESP 16–17; TEMP 36.3–37.1; O2SAT 94–98
[2023-05-13] MEDS: piperacillin-tazobactam 3.375 GM in sodium chloride 0.9% (plus) 50 ML IV ×3 (04:11→21:02)
[2023-05-13 05:16] LABS: Basophils % 0.4 %; Eosinophils % 0.2 %; Hematocrit 26.6 % (36-47); Lymphocytes % 17.2 %; Mean Corpuscular HGB Conc 31.6 g/dL (30-55); Mean Corpuscular Hemoglobin 28.6 pg (27-33); Mean Corpuscular Volume 90.5 fl (85-98); Mean Platelet Volume 9.7 fL (7.4-10.4); Monocytes # 0.3 10^3/uL (0.2-0.9); Monocytes % 5.6 %; Neutrophils # 3.91 10^3/uL (1.8-7.7); Neutrophils % 68.7 %; Nucleated Red Blood Cells % 0 %; Platelet Count 207 10^3/cmm (157-399); Red Blood Count 2.94 10^6/uL (3.85-5.65); Red Cell Distribution Width 14.5 % (12.1-15.1); White Blood Count 5.69 10^3/uL (3.29-11.43)
[2023-05-13 05:34] LABS: Slide Review Slide Review Perform
[2023-05-13 05:45] LABS: Anion Gap 15.3 (5-19); Blood Urea Nitrogen 28 mg/dL (8-23); Carbon Dioxide 20 mmol/L (22-29); Chloride 105 mmol/L (98-107); Glomerular Filtration Rate 84.8 mL/min (90-130); Glucose 86 mg/dL (65-115); Osmolality Calculated 289 mOsm/kg (285-295); Potassium 3.3 mmol/L (3.5-5.1); Sodium 137 mmol/L (136-145)
[2023-05-13] MEDS: hyDRALAzine 25 mg Tablet PO ×3 (09:19→21:03)
[2023-05-13] MEDS: venlafaxine 75 mg Tablet PO (09:19)
[2023-05-13] MEDS: predniSONE 20 mg Tablet 40 MG PO (09:19)
[2023-05-13] MEDS: HYDROcodone-acetaminophen 5-325 mg Tablet 1 TAB PO ×2 (10:36→19:20)
--- NOTE | 2023-05-13 13:27 | P.PN_ITS ---
Subjective 2 Subjective: Patient seen and examined. Was contacted by the hospitalist originally patient was plan for discharge however her aspiration of fluid collection has grown gram-positive and concern for Staph aureus per hospitalist. Patient's been afebrile Vitals/I&O/Wt Last Vital Signs Temp 98.8 F 05/13/23 11:17 Pulse 82 05/13/23 11:17 Resp 16 05/13/23 11:17 BP 160/83 05/13/23 11:17 Pulse Ox 94 05/13/23 11:17 O2 Del Method Room Air 05/13/23 11:17 05/12/23 05/13/23 05/13/23 22:59 06:59 14:59 Intake Total 780 / 1070 50 / 1120 290 / 290 Output Total 350 / 350 650 / 1000 Balance 430 / 720 -600 / 120 290 / 290 Weight last 48 hrs Weight 207 lb 6.4 oz Weight 216 lb 1.6 oz Physical Exam 2 Narrative: Left shoulder examination Band-Aids in place from fluid aspiration. There is no signs of erythema or signs of infection, stable examination, in passive range of motion able to tolerate above 90 degrees today. Stable active range of motion from yesterday still demonstrates guarded secondary to pain. Urinary Catheter Management: Nicole: Cath Placed During This Visit: yes Reason for Continuing Indwelling Catheter: Acute Urinary Retention or Obstruction Urinary Catheter Date of Insertion: 05/09/23 Urinary Catheter Time of Insertion: 18:56 Data 05/13/23 04:27 05/13/23 04:27 Micro: Microbiology 05/12/23 14:40 Gram Stain - Final Other Source Body Fluid Culture - Preliminary Coag positive Staphylococcus 05/12/23 00:00 Bacterial Antigens - Final Urine Kidney A&P Assessment and plan (1) Bursitis of left shoulder: (2) Muscle abscess: (3) Left arm swelling: Plan Plan: -Medicine is primary -Labs and imaging reviewed -MRI of left shoulder reviewed -Pain control -PT/OT -IR aspiration growing gram-positive cocci Was contacted by hospitalist update on gram-positive cocci on fluid aspiration. Once again reviewed of these imaging and findings talked about this in detail with the patient as well as with the hospitalist. At this point in time patient has significant fluid collections all throughout the rotator cuff musculature deep within the muscle bellies. This predominantly resides mostly within the subacromial space is within the intramuscular regions of the rotator cuff muscles. Once again on MRI I do not see any aggressive necrotic appearing changes which was confirmed by the radiologist's read. Patient's been afebrile and no white count. At this point in time though with these concerning findings that this is actually an abscess suspect patient would benefit from incision and drainage. Unfortunately the location of this throughout the the shoulder girdle particularly posteriorly this is out of the scope of my practice and I expressed this to this patient which she politely understood and ultimately I would recommend patient be transferred to a tertiary center where they can appropriately manage this. I discussed this with the hospitalist and they are attempting to set up transfer. Attestations 2 Medical Necessity Statement*: Ongoing care for left shoulder fluid collection with a positive IR aspiration Coding Level of Care Code Acute Code for Chg Fwd Diagnoses Bursitis of left shoulder M75.52 Muscle abscess M60.009 Left arm swelling M79.89 Time Spent (min) 25
[2023-05-13 13:49] LABS: Methicillin-Resist S.aureu PCR DETECTED (NOT DETECTED)
--- NOTE | 2023-05-13 13:57 | PM.PN ---
Subjective Subjective: Seen this morning. Awaiting culture of fluid aspirated from shoulder yesterday. Preliminary results shows coagulase positive staph. Most likely this is Staph aureus from what the lab is telling me after discussion with them. Sensitivity will be most likely available tomorrow. Discussed results of the above with orthopedic surgery who recommend transfer to higher level of care for washout of shoulder and scapular area as it requires a specialized approach. Called [facility] and [facility] do not have a bed at least for 72 hours. [facility] in particular said that patient needs specialized higher level of care and they were not able to handle the case. They advised me to call [facility] or [facility]. Called [facility] who is also full for MedSur floor at this time. Discussed case with [facility] with Dr. Carranza orthopedic surgery and he states that at this time transferring patient for I&D of shoulder is unnecessary and that it can be done at any other hospital East or West of where we currently are at this time. He states he would like to discuss with our orthopedic surgeon regarding patient's care. I did explain to him that I have called other hospitals and they believe [facility] would be more appropriate for patient at this time. However He will be declining transfer at this time. Discussed with Dr. Anne over the phone who will try to call [facility] send discussed with Dr. Carranza over the phone. In the meantime I will try calling [facility] to see if they have any bed availability at this time. Also discussed with lab. They have told me they will not be able to do a cell count on the aspirated fluid that was very viscous and bloody. Order will be canceled at this time. Vitals/I&O/Wt Last Vital Signs Temp 98.8 F 05/13/23 11:17 Pulse 82 05/13/23 11:17 Resp 16 05/13/23 11:17 BP 160/83 05/13/23 11:17 Pulse Ox 94 05/13/23 11:17 O2 Del Method Room Air 05/13/23 11:17 05/12/23 05/13/23 05/13/23 22:59 06:59 14:59 Intake Total 780 / 1070 50 / 1120 290 / 290 Output Total 350 / 350 650 / 1000 Balance 430 / 720 -600 / 120 290 / 290 Weight last 48 hrs Weight 94.075 kg Weight 98.021 kg Physical Exam Narrative: General: AOx3, Chest: Normal vesicular breath sounds, no added sounds, equal but decreased air entry bilaterally CVS: S1-S2 regular, no murmurs, no tachycardia, no gallops, no rubs Abdomen: Soft, nontender, no organomegaly, bowel sounds present Neuro: No focal deficits, Extremity: Left arm from shoulder down to elbow slightly tender and warm to touch without any erythema, more swelling on the medial aspect, tender shoulder joint left side, right wrist swollen and tender to touch, range of motion restricted secondary to pain. Urinary Catheter Management: Nicole: Cath Placed During This Visit: yes Reason for Continuing Indwelling Catheter: Acute Urinary Retention or Obstruction Urinary Catheter Date of Insertion: 05/09/23 Urinary Catheter Time of Insertion: 18:56 Data 05/13/23 04:27 05/13/23 04:27 Micro: Microbiology 05/12/23 14:40 Gram Stain - Final Other Source Body Fluid Culture - Preliminary Coag positive Staphylococcus 05/12/23 00:00 Bacterial Antigens - Final Urine Kidney A&P Assessment and plan (1) Altered mental status: Resolved. Patient is awake and alert. Back to baseline mentation. Most likely in setting of hyponatremia, dehydration and metabolic encephalopathy in setting of MAGDALENE. Patient also has not taken her steroids for last couple of weeks. Cellulitis of the arm is ruled out. Urine culture without any growth. Out of bed to chair. Physical therapy. Appreciate TSH, vitamin B12 Altered mental status is resolved. Resolved (2) Hyponatremia: Sodium levels improving. In setting of dehydration. Appreciate urine lites, urine creatinine. Patient's oral intake is improving. Stop IV fluids. Repeat BMP in AM. Resolved (3) Left arm swelling: Appreciate CT shoulder and MRI results. Concerning for significant subacromial/subdeltoid bursitis without any evidence of osteomyelitis or possible joint infection or abscess with multifocal muscle edema markedly and subarachnoid?subdeltoid bursa. Appreciate orthopedic recommendation. Will go ahead with diagnostic IR tap when available on Friday. Orders placed. Discussed the case in detail with patient's outpatient wildlife forensic geneticist Dr. Schulz who is concerned for possible flareup of patient's baseline inflammatory arthritis. Will check CPK, aldolase. Appreciate ESR and CRP on admission. Increase dose of prednisone to 40 mg daily. PT as per orthopedic team. Doppler ruled out DVT/SVT. Continue with broad-spectrum antibiotics for now while infection is completely ruled out though patient does not have any episodes of fever or leukocytosis since admission. (4) Bursitis of left shoulder: (5) Acute kidney injury: Improving. Most likely in setting of dehydration along with home use of NSAIDs. Patient also at baseline is supposed to be on lisinopril, hydrochlorothiazide combination though she has not taken those medications for last few days. Medical reconciliation done for nephrotoxic drugs. Monitor BMP daily. Stopping fluid as above. CT abdomen pelvis negative for obstructive nephropathy. Does have mild metabolic acidosis which is resolving we will hold off on any further sodium bicarbonate 650 mg oral 3 times daily for now. Resolved (6) Hypotension: Blood pressure is elevated today. Goal blood pressure less than 140/90 mmHg with mean over 65. Restart home dose of hydralazine 25 mg 3 times daily. Will change medications as per goal. Resolved (7) Sepsis: Resolved. SIRS: Tachycardic, tachypneic Source: Cellulitis of the left arm, UTI End organ damage: Acute kidney injury, altered mental status, hypotension Lactic acid within normal limits Patient did not receive full 30 mL/kg BW as to have a risk of fluid overload in setting of acute kidney injury Blood cultures so far negative, MRSA swab pending, urine Legionella, bacterial antigen. Procalcitonin mildly elevated might be in case of acute kidney injury. Repeat Pro-Louis today. For now continue with broad-spectrum antibiotics with IV vancomycin, IV Zosyn. Hold off on any further azithromycin. Antibiotic should cover both cellulitis and UTI. (8) Cellulitis of left upper extremity: (9) UTI (urinary tract infection): Appreciate urinalysis. Follow urine culture, blood culture. (10) Metabolic acidosis: In setting of acute kidney injury with dehydration. Monitor daily. (11) Chronic use of steroids: Prednisone as above. (12) Anemia: Target hemoglobin more than 7. Hemoglobin so far stable. Continue to monitor. Appreciate iron panel, vitamin B12 and folate levels. (13) Hypertension: Goal blood pressure less than 140/90 mmHg with mean over 65. Medications restarted as above. (14) Inflammatory arthritis: Plan CODE STATUS: Discussed in detail with patient and patient's spouse at bedside. Spouse will be the DPOA. DNR/DNI. Regular diet Lovenox for DVT prophylaxis Protonix OPD prophylaxis PT/OT #Sepsis present on admission secondary to left arm cellulitis, bursitis ? Patient underwent left shoulder fluid collection aspiration with ultrasound guidance on 05/12/1903/19/2024. Fluid very bloody and viscous unable to do a cell count on it as per lab. Fluid culture Gram stain growing coagulase positive staph. Lab indicates this may most likely be Staph aureus and sensitivities will be available tomorrow. ? Patient has been afebrile but is also been on prednisone and is immunocompromise with history of methotrexate in the past. At 1 point also had pancytopenia. Did present with sepsis on admission. Has been on Vanco and Zosyn. ? MRSA nares positive for MRSA. ? Discussed above with Dr. Anne. He recommends washout drainage/I&D of fluid collections and shoulder which do show extension tracking into supraspinatus infraspinatus muscle at this time. ? This is most likely not a contamination. There may be a component of rheumatologic myositis. Continue patient on prednisone 40 daily for now. ? In light of above data she will need IND at this point. ? Orthopedic surgery recommends to transfer patient to higher level of care. We are working to find a bed. Called [facility] and [facility] do not have a bed at least for 72 hours. [facility] in particular said that patient needs specialized higher level of care and they were not able to handle the case. They advised me to call [facility] or [facility]. Called [facility] who is also full for Medr floor at this time. Discussed case with [facility] with Dr. Carranza orthopedic surgery and he states that at this time transferring patient for I&D of shoulder is unnecessary and that it can be done at any other hospital East or West of where we currently are at this time. He states he would like to discuss with our orthopedic surgeon regarding patient's care. I did explain to him that I have called other hospitals and they believe [facility] would be more appropriate for patient at this time. However He will be declining transfer at this time. Discussed with Dr. Anne over the phone who will try to call [facility] and discuss with Dr. Carranza over the phone. In the meantime I will try calling [facility] to see if they have any bed availability at this time. DNR/DNI. Attestations Medical Necessity Statement*: Continued hospitalization for left shoulder bursitis. Will need transfer to higher level of care for incision and drainage at this time. Diagnoses Altered mental status R41.82 Hyponatremia E87.1 Left arm swelling M79.89 Bursitis of left shoulder M75.52 Acute kidney injury N17.9 Hypotension I95.9 Sepsis A41.9 Cellulitis of left upper extremity L03.114 UTI (urinary tract infection) N39.0 Metabolic acidosis E87.20 Chronic use of steroids Anemia D64.9 Hypertension I10 Inflammatory arthritis M19.90
[2023-05-13] MEDS: enoxaparin 40 mg/0.4 mL Syringe SUBCUT (17:15)
[2023-05-13] MEDS: pantoprazole 40 mg SDV IVP (17:25)
[2023-05-13] MEDS: vancomycin 1,250 MG/250 ML PIGGYBACK 250 MG IV (18:27)
--- NOTE | 2023-05-13 19:38 | P.TS_ITS ---
Transfer Summary Providers Date of Admission: 05/09/23 16:23 Date of Discharge/Transfer: 05/13/23 Attending Provider at Admission: Anil Reed MD Attending Provider at Transfer: Chiquis Conroy MD Primary Care Provider: Sorin Bone MD Transfer Plans: Anticipated date of transfer: 05/13/23 . Receiving Facility: [facility] . Receiving Provider: Dr. Dipika Klein Diagnoses at Discharge Discharge Diagnosis (1) Bursitis of left shoulder: Status: Acute (2) Muscle abscess: Status: Acute (3) Left arm swelling: Status: Acute Reason for Visit Reason for Visit dr bone sent, abnormal labs Brief History: As per Dr. Boothe, admitting physician: Pamela Arrington is a 62 year old female with past medical history of hypertens ion, rheumatoid arthritis currently on prednisone 5 mg twice daily for last month and a half, sent into the ER today by her primary care office because of abnormality in the lab which was drawn yesterday. As per patient for last couple of weeks she has noticed swelling and pain, left going all the way from shoulder down to the elbow resulting in weakness. She is not sure what brought up on the swelling. Denies any trauma, injury, animal bites. As per the family member she has also been getting transfused and weak since that time. She presented to her primary care's office for the same pain few days ago and she was given NSAIDs and Flexeril for the same. As per the patient she has not been taking any of her regular medications except for painkillers for last 2 weeks as nobody in her house except herself manages her medications and she was too weak and slightly confused to set up her pillbox. Day before yesterday while sitting in the couch she slipped off and landed on her right hand since then she has been having pain in her right wrist as well. She went to the primary care's office again for the same complaints and at that time blood work was done on which she was found to have hyponatremia with sodium down to 129 and creatinine up to 2 and she was asked to come to the ER. She does give history of decreased oral intake of foods but increased intake of water for last few weeks along with nausea but no vomiting. Does give history of decreased urine output with on and off dysuria but no diarrhea. For the left arm swelling patient denies any trauma, fall, animal or insect bite, history of breast cancer, breast mass but does give history of a blood draw earlier in March but she is not sure which arm the blood was taken from. Today the ER patient lethargic but not confused, mildly tachypneic, complaining of generalized malaise mostly in the left arm which is swollen from shoulder to elbow and right wrist along with left ankle. Hospital Course Hospital Course Pamela Arrington is a 62 year old female that is having left shoulder and arm pain and swelling. Orthopedics was consulted to get their recommendation on left shoulder pain and swelling. Patient states she has a history of some kind of rheumatological disorder but they are still working her up to figure out what her diagnosis is. She states that about a month ago she started developing pain in her left shoulder and left upper arm. Denies any injury or trauma to cause pain. She was put on some muscle relaxers and an NSAID but had no relief. She was then put on a course of prednisone and a had no improvement. Doctor then sent her to the emergency department to get admitted for concern of cellulitis. Patient says over the last week her pain has gotten worse and her range of motion in her left shoulder is gotten worse. Reports having temperatures of 99 degrees a couple days over the past week, but no temperatures above 100. Denies any other joint complaints currently. During hospital stay she has had following imaging done: CT chest abd pelvis:IMPRESSION: 1. Extensive intramuscular edema involving the LEFT shoulder musculature with mild subcutaneous soft tissue induration extending to the LEFT lower neck. No visualized fractures of the LEFT shoulder although incompletely visualized. No evidence of osteomyelitis. Consider vascular ultrasound for DVT and superficial thrombophlebitis. 2. Lungs are well aerated with slight subsegmental atelectasis in the lung bases. No other acute chest findings. 3. Hepatomegaly and splenomegaly with evidence of portal venous hypertension. Recommend correlation with liver function tests. 4. Prior cholecystectomy. 5. Noncontrast kidneys appear normal. No hydronephrosis or renal cortical atrophy. 6. No other acute findings. Ct Shoulder IMPRESSION: 1. There is a large fluid collection posterior to the humeral head which appears to be within and perhaps tracking into the supraspinatus and infraspinatus muscles. No convincing joint effusion. The fluid collection is water density. Margins are challenging to demonstrate without intravenous contrast. Ultrasound may be helpful. 2. There is edema and soft tissue distortion in the fat surrounding the shoulder and extending into the supraclavicular fossa, etiology unclear. Correlate with any history of recent trauma. Ct Humerus IMPRESSION: Intact humerus. Distal to the shoulder there are no abnormal fluid collections, and there is no soft tissue gas or radiopaque foreign body. Please see CT shoulder report regarding periarticular fluid collection. Shoulder MRI IMPRESSION: 1. Severe subacromial-subdeltoid bursitis. No evidence of osteomyelitis or convincing evidence of joint infection. No evidence of abscess. 2. Multifocal muscle edema, which may be reactive secondary to the markedly inflamed subacromial-subdeltoid bursa. An autoimmune myositis could have a similar appearance in the proper clinical setting. Correlation with serum laboratory findings and rheumatologic evaluation is recommended. Fluid analysis of the bursal fluid may be helpful if clinically warranted. 3. Cuff is intact without high-grade or full-thickness tear. The findings were verbally communicated by telephone with ANIL Knox at 6:03 PM [employer] on 05/10/2023. The findings were acknowledged and understood. Ultrasound guided LEFT shoulder aspiration. INDICATION: LEFT shoulder effusion TECHNIQUE: Ultrasound guided LEFT shoulder aspiration FINDINGS: The procedure including risks benefits and complications were discussed with the patient who agreed to proceed. Timeout was performed. Patient was prepped and draped in usual sterile fashion. After 1% lidocaine, using u ltrasound guidance, an 18-gauge spinal needle was advanced into the fluid collection. 3 passes were made. Approximately 7-8 cc of bloody fluid was aspirated. No immediate complications. Fluid sent for requested diagnostic tests. Shoulder effusion appears complex with internal echogenic debris. IMPRESSION: Uncomplicated ultrasound-guided LEFT shoulder aspiration. Fluid analysis could not be perfomed secondary to high viscosity of fluid. GM stain culture growing coagulase positive staph. Discussed with lab and they have identified bacteria as staph aureus and said sensitivity will be available tomorrow. Jarod discussed with [facility] on phone (They are not provider relations representative today) and discussed case. ID recommends washout of shoulder and 6 weeks of IV antibiotics. Disucssed with orthopedic surgery: THey have following recommendations: Was contacted by hospitalist update on gram-positive cocci on fluid aspiration. Once again reviewed of these imaging and findings talked about this in detail with the patient as well as with the hospitalist. At this point in time patient has significant fluid collections all throughout the rotator cuff musculature deep within the muscle bellies. This predominantly resides mostly within the subacromial space is within the intramuscular regions of the rotator cuff muscles. Once again on MRI I do not see any aggressive necrotic appearing changes which was confirmed by the radiologist's read. Patient's been afebrile and no white count. At this point in time though with these concerning findings that this is actually an abscess suspect patient would benefit from incision and drainage. Unfortunately the location of this throughout the the shoulder girdle particularly posteriorly this is out of the scope of my practice and I expressed this to this patient which she politely understood and ultimately I would recommend patient be transferred to a tertiary center where they can appropriately manage this. I discussed this with the hospitalist and they are attempting to set up transfer. Attempted to transfer patient however there are no beds available anywhere and patient has been declined by multiple facilities. Talked with [facility] Dr. Garcia (orthopedic surgery) and discussed the case. He accepted patient for transfer for further workup and will decide if washout need to performed. We will make patient NPO at midnight. I relayed the above information to patient's of the upcoming plan at [facility]. Updated house officer who will coordiante setting up transport once bed available. I have also let her know of patient's request to be informed an hour prior to transport arrival so he can follow ambulance. Patient hemodynamically stable at this time and will be transferred as soon as a bed is available. We will send a disc of all imaging done at our facility. Accepting physician: Dr. Bar (Hospitalist). Physical Exam Urinary Catheter Management: Nicole: Cath Placed During This Visit: yes Reason for Continuing Indwelling Catheter: Acute Urinary Retention or Obstruction Urinary Catheter Date of Insertion: 05/09/23 Urinary Catheter Time of Insertion: 18:56 TS Data Studies Completed and Pending Pending at discharge Category Date Time Status Aldolase Routine Lab 05/11/23 14:50 Received Blood Culture Stat Lab 05/09/23 21:20 Results Body Fluid Culture & GS Stat Lab 05/12/23 14:40 Results Complete Blood Count w/Auto AM LABS Lab 05/14/23 04:00 Ordered Comprehensive Metabolic Panel AM LABS Lab 05/14/23 04:00 Ordered Cytology [PTH] Routine Pth 05/12/23 08:56 Received Completed Studies During Hospitalization Category Date Time Status CT chest abdomen pelvis [[place] [id number] Cat Scan 05/09/23 12:43 Completed ] Stat CT humerus LT wo con* [id number] Stat Cat Scan 05/09/23 18:[address] shoulder LT wo con* [id number] Stat Cat Scan 05/09/23 18:43 Completed MR shoulder LT wo con* [id number] Urgent MRI 05/10/23 16:00 [place] [id number] Stat Ultrasound 05/09/23 13:39 Completed US guide soft tissue fluid drain by cath [US softtissue Ultrasound 05/12/23 09:[address] [place] [address] [place] [id number]] Routine Laboratory Last Values WBC 5.69 10^3/uL (3.29-11.43) 05/13/23 04:27 RBC 2.94 10^6/uL (3.85-5.65) L 05/13/23 04:27 Hgb 8.40 g/dL (11.27-16.99) L 05/13/23 04:27 Hct 26.6 % (36-47) L 05/13/23 04:27 MCV 90.5 fl (85-98) 05/13/23 04:27 MCH 28.6 pg (27-33) 05/13/23 04:27 MCHC 31.6 g/dL (30-55) 05/13/23 04:27 RDW 14.5 % (12.1-15.1) 05/13/23 04:27 Plt Count 207 10^3/cmm (157-399) 05/13/23 04:27 MPV 9.7 fL (7.4-10.4) 05/13/23 04:27 Neut % (Auto) 68.7 % 05/13/23 04:27 Lymph % (Auto) 17.2 % 05/13/23 04:27 Ceiba % (Auto) 5.6 % 05/13/23 04:27 Eos % (Auto) 0.2 % 05/13/23 04:27 Baso % (Auto) 0.4 % 05/13/23 04:27 Neut # (Auto) 3.91 10^3/uL (1.8-7.7) 05/13/23 04:27 Lymph # (Auto) 1.0 10^3/uL (0.8-4.8) 05/13/23 04:27 Ceiba # (Auto) 0.3 10^3/uL (0.2-0.9) 05/13/23 04:27 Eos # (Auto) 0.0 10^3/uL (0.0-0.8) 05/13/23 04:27 Baso # (Auto) 0.0 10^3/uL (0.0-0.1) 05/13/23 04:27 Nucleated RBC % (auto) 0 % 05/13/23 04:27 Nucleated RBCs # 0.0 /100WBC 05/13/23 04: ESR 49 mm/hr (0-15) H 05/09/23 11:40 Specimen Type Arterial 05/09/23 12:00 Sample Site Radial, right 05/09/23 12:00 ABG pH 7.44 (7.35-7.45) 05/09/23 12:00 ABG pCO2 25.9 mmHg (35-45) L 05/09/23 12:00 ABG pO2 71.6 mmHg (80.0-100.0) L 05/09/23 12:00 ABG PO2/FiO2 Ratio 0 05/09/23 12:00 ABG HCO3 17.5 mmol/L (22-26) L 05/09/23 12:00 ABG O2 Saturation 95.9 05/09/23 12:00 ABG Base Excess -5.5 mmol/L (-2.0-2.0) L 05/09/23 12:00 Roc Test Pos 05/09/23 12:00 A-a O2 Gradient 5.7 mmHg (5-10) 05/09/23 12:00 Hematocrit 31.5 % (37-47) L 05/09/23 12:00 Hgb O2 Saturation 94.2 % (95-100) L 05/09/23 12:00 Carboxyhemoglobin 1.3 %THgb (0.4-20.1) 05/09/23 12:00 Methemoglobin 0.6 % (0.4-1.5) 05/09/23 12:00 Total Hemoglobin 10.3 g/dL (12-16) L 05/09/23 12:00 Sodium 124.0 mmol/L (131-143) L 05/09/23 12:00 Potassium 3.8 mmol/L (3.5-5.0) 05/09/23 12:00 Glucose 198.0 mg/dL (70-115) H 05/09/23 12:00 Ionized Calcium 1.1 mmol/L (1.1-1.4) 05/09/23 12:00 O2 Delivery Device Room air 05/09/23 12:00 FiO2 21.0 % 05/09/23 12:00 Clinical Informatics Physician ID Bernice 05/09/23 12:00 Sodium 137 mmol/L (136-145) 05/13/23 04:27 Potassium 3.3 mmol/L (3.5-5.1) L 05/13/23 04:27 Chloride 105 mmol/L (98-107) 05/13/23 04:27 Carbon Dioxide 20 mmol/L (22-29) L 05/13/23 04:27 Anion Gap 15.3 (5-19) 05/13/23 04:27 BUN 28 mg/dL (8-23) H 05/13/23 04:27 Creatinine 0.7 mg/dL (0.5-0.9) 05/13/23 04:27 GFR Calculation 84.8 mL/min (90-130) L 05/13/23 04:27 Glucose 86 mg/dL (65-115) 05/13/23 04:27 Estimat Average Glucose 126 05/10/23 04:20 Hemoglobin A1c 6.0 % (4.0-6.0) 05/10/23 04:20 Calculated Osmolality 289 mOsm/kg (285-295) 05/13/23 04:27 Calcium 8.0 mg/dL (8.5-10.5) L 05/13/23 04:27 Phosphorus 4.9 mg/dL (2.5-4.5) H 05/10/23 04:20 Magnesium 2.2 mg/dL (1.7-2.3) 05/10/23 04:20 Iron 19 ug/dL (37-145) L 05/09/23 11:40 TIBC 173 mcg/dl 05/09/23 11:40 % Saturation 10.9 % (20-50) L 05/09/23 11:40 Unsat Iron Binding 154 ug/dL (112-347) 05/09/23 11:40 Total Bilirubin 0.5 mg/dL (0.15-1.2) 05/12/23 02:01 AST 29 U/L (0-32) 05/12/23 02:01 ALT 21 U/L (0-33) 05/12/23 02:01 Alkaline Phosphatase 93 U/L (35-105) 05/12/23 02:01 Creatine Kinase 56 U/L (26-192) 05/11/23 14:50 C-Reactive Protein 268.7 mg/L (0.0-4.9) H 05/09/23 11:40 Total Protein 6.5 g/dL (6.6-8.7) L 05/12/23 02:01 Albumin 2.5 g/dL (3.5-5.2) L 05/12/23 02:01 Globulin 4.0 g/dL (1.3-4.6) 05/12/23 02:01 Triglycerides 137 mg/dL (0-150) 05/10/23 04:20 Cholesterol 140 mg/dL (0-200) 05/10/23 04:20 LDL Cholesterol, Calc 95 mg/dL (50-129) 05/10/23 04:20 HDL Cholesterol 18 mg/dL (60-100) L 05/10/23 04:20 LDL/HDL Ratio 5.28 RATIO (0.00-3.22) H 05/10/23 04:20 Cholesterol/HDL Ratio 7.78 mg/dL (0.0-4.40) H 05/10/23 04:20 Folate 8.6 ng/mL (4.8-37.3) 05/10/23 04:20 Procalcitonin 0.79 ng/mL (0-0.5) H 05/11/23 14:50 TSH 2.28 uIU/mL (0.27-4.20) 05/09/23 11:40 Random Cortisol 39.21 ug/dL (2.47-19.5) H 05/09/23 11:40 Urine Color Yellow (Yellow) 05/09/23 11:50 Urine Appearance Hazy (CLEAR) A 05/09/23 11:50 Urine pH 5 (5-7) 05/09/23 11:50 Ur Specific [place] 1.020 (1.005-1.030) 05/09/23 11:50 Urine Protein Trace (Negative) 05/09/23 11:50 Urine Glucose (UA) Norm (Normal) 05/09/23 11:50 Urine Ketones 1+ (Negative) H 05/09/23 11:50 Urine Blood 3+ (Negative) H 05/09/23 11:50 Urine Nitrate Negative (Negative) 05/09/23 11:50 Urine Bilirubin 1+ (Negative) H 05/09/23 11:50 Urine Urobilinogen 1 mg/dL (Negative) H 05/09/23 11:50 Ur Leukocyte Esterase 1+ (Negative) H 05/09/23 11:50 Urine RBC 15-25 /hpf (0-2) H 05/09/23 11:50 Urine WBC >100 /hpf (0-5) H 05/09/23 11:50 Ur Eosinophil Smear 0 (0-0) 05/09/23 11:50 Ur Squamous Epith Cells 55-80 /hpf (0-5) H 05/09/23 11:50 Amorphous Sediment Not Reportable 05/09/23 11:50 Urine Bacteria 2+ /hpf (NONE) H 05/09/23 11:50 Urine Eosinophils No eosinophils seen 05/09/23 11:50 Ur Random Sodium 29 mmol/L 05/09/23 11:50 Ur Random Potassium 45 mmol/L 05/09/23 11:50 Ur Random Chloride 11 mmol/L 05/09/23 11:50 Urine Creatinine 231 mg/dL (28-217) H 05/09/23 11:50 Vancomycin Trough 11.9 ug/mL (10-15) 05/12/23 18:06 Urine Opiates Screen Negative ng/mL (Negative) 05/09/23 11:50 Ur Barbiturates Screen Negative ng/mL (Negative) 05/09/23 11:50 Ur Phencyclidine Scrn Negative ng/mL (Negative) 05/09/23 11:50 Ur Amphetamines Screen Negative ng/mL (Negative) 05/09/23 11:50 U Benzodiazepines Scrn Positive ng/mL (Negative) H 05/09/23 11:50 Urine Cocaine Screen Negative ng/mL (Negative) 05/09/23 11:50 U Marijuana (THC) Screen Negative ng/mL (Negative) 05/09/23 11:50 MRSA (PCR) Detected (NOT DETECTED) A 05/11/23 15:[address] 05/09/23 18:43 IMPRESSION: 1. There is a large fluid collection posterior to the humeral head which appears to be within and perhaps tracking into the supraspinatus and infraspinatus muscles. No convincing joint effusion. The fluid collection is water density. Margins are challenging to demonstrate without intravenous contrast. Ultrasound may be helpful. 2. There is edema and soft tissue distortion in the fat surrounding the shoulder and extending into the supraclavicular fossa, etiology unclear. Correlate with any history of recent trauma. Humerus CT 05/09/23 18:46 IMPRESSION: Intact humerus. Distal to the shoulder there are no abnormal fluid collections, and there is no soft tissue gas or radiopaque foreign body. Please see CT shoulder report regarding periarticular fluid collection. Shoulder MRI 05/10/23 16:00 IMPRESSION: 1. Severe subacromial-subdeltoid bursitis. No evidence of osteomyelitis or convincing evidence of joint infection. No evidence of abscess. 2. Multifocal muscle edema, which may be reactive secondary to the markedly inflamed subacromial-subdeltoid bursa. An autoimmune myositis could have a similar appearance in the proper clinical setting. Correlation with serum laboratory findings and rheumatologic evaluation is recommended. Fluid analysis of the bursal fluid may be helpful if clinically warranted. 3. Cuff is intact without high-grade or full-thickness tear. The findings were verbally communicated by telephone with ANIL Knox at 6:03 PM [employer] on 05/10/2023. The findings were acknowledged and understood. Recent Clincial Data Last Vital Signs Temp 97.8 F 05/13/23 19:26 Pulse 77 05/13/23 19:26 Resp 16 05/13/23 19:26 BP 179/79 05/13/23 19:26 Pulse Ox 97 05/13/23 19:26 O2 Del Method Room Air 05/13/23 16:00 Vital Signs Temp Pulse Resp BP Pulse Ox O2 Del Method 05/13/23 19:26 97.8 F 77 16 179/79 97 05/13/23 16:00 81 17 174/77 05/13/23 16:00 81 17 174/77 98 Room Air 05/13/23 14:00 71 05/13/23 11:17 98.8 F 82 16 160/83 94 Room Air Intake & Output/Weight 05/11/23 05/12/23 05/13/23 05/14/23 06:59 06:59 06:59 06:59 Intake Total 3130 / 3130 2330 / 2330 1120 / 1120 580 / 580 Output Total 1000 / 1000 1350 / 1350 1000 / 1000 Balance 2130 / 2130 980 / 980 120 / 120 580 / 580 Weight 97.721 kg 98.021 kg 94.075 kg Vitals Last Vital Signs Temp 97.8 F 05/13/23 19:26 Pulse 77 05/13/23 19:26 Resp 16 05/13/23 19:26 BP 179/79 05/13/23 19:26 Pulse Ox 97 05/13/23 19:26 O2 Del Method Room Air 05/13/23 16:00 TS Medications Medications Acetaminophen (Acetaminophen 325 Mg Tablet) 650 mg PO Q6H PRN PRN Reason: Mild/Mod Pain Or Temp >/= 101 Last Admin: 05/11/23 09:01 Dose: 650 mg Hydrocodone Bitart/Acetaminophen (Hydrocodone-Acetaminophen 5-325 Mg Tablet) 1 tab PO Q6H PRN PRN Reason: MODERATE PAIN Last Admin: 05/13/23 19:20 Dose: 1 tab Bisacodyl (Bisacodyl 5 Mg Tablet) 10 mg PO DAILY PRN; Protocol PRN Reason: Constipation (see protocol) Enoxaparin Sodium (Enoxaparin 40 Mg/0.4 Ml Syringe) 40 mg SUBCUT Q24H [facility] Last Admin: 05/13/23 17:15 Dose: 40 mg Hydralazine HCl (Hydralazine 20 Mg/Ml Inj 1 Ml) 10 mg IVP Q4H PRN PRN Reason: SBP More than 160 mmhg Hydralazine HCl (Hydralazine 25 Mg Tablet) 25 mg PO TID [facility] Last Admin: 05/13/23 14:46 Dose: 25 mg Piperacillin Sod/Tazobactam (Sod 3.375 gm/ Sodium Chloride) 50 mls @ 12.5 mls/hr IV Q8H [facility]; Protocol Last Infusion: 05/13/23 16:57 Dose: Infused Vancomycin/PEG/NADA/Lysine/Water (Vancocin) 1,250 mg in 250 mls @ 250 mls/hr IV Q24H [facility] Last Admin: 05/13/23 18:27 Dose: 250 mls/hr Lactulose (Lactulose Oral Liq 20 Gm/30 Ml Udc) 10 gm PO DAILY PRN; Protocol PRN Reason: Constipation (see protocol) Lorazepam (Lorazepam 1 Mg Tablet) 0.5 mg PO BEDTIME PRN PRN Reason: insomnia Last Admin: 05/12/23 20:50 Dose: 0.5 mg Magnesium Hydroxide (Magnesium Hydroxide 30 Ml Udc) 30 ml PO DAILY PRN; Protocol PRN Reason: Constipation (see protocol) Morphine Sulfate (Morphine 4 Mg/Ml Sdv 1 Ml) 2 mg IVP Q4H PRN PRN Reason: SEVERE PAIN Ondansetron HCl (Ondansetron 2 Mg/Ml Sdv 2 Ml) 4 mg IVP Q8H PRN PRN Reason: vomiting, or N/V if npo Pantoprazole Sodium (Pantoprazole 40 Mg Sdv) 40 mg IVP Q24H [facility] Last Admin: 05/13/23 17:25 Dose: 40 mg Prednisone (Prednisone 20 Mg Tablet) 40 mg PO DAILY [facility] Last Admin: 05/13/23 09:19 Dose: 40 mg Venlafaxine HCl (Venlafaxine 75 Mg Tablet) 75 mg PO DAILY [facility] Last Admin: 05/13/23 09:19 Dose: 75 mg Discontinued Medications Dexamethasone (Dexamethasone 10 Mg/Ml Inj) 10 mg IVP ONCE ONE Stop: 05/09/23 16:26 Last Admin: 05/09/23 17:07 Dose: Not Given Diphenhydramine HCl (Diphenhydramine 50 Mg/Ml Sdv 1ml) 50 mg IVP ONCE ONE Stop: 05/10/23 16:23 Last Admin: 05/10/23 20:14 Dose: Not Given Diphenhydramine HCl (Diphenhydramine 25 Mg Capsule) 25 mg PO NOW ONE Stop: 05/10/23 16:26 Last Admin: 05/10/23 16:41 Dose: 25 mg Haloperidol Lactate (Haloperidol Inj 5 Mg/Ml Inj 1 Ml) 2 mg IVP ONCE ONE Stop: 05/10/23 16:22 Last Admin: 05/10/23 16:42 Dose: 2 mg Hydrocortisone Sodium Succinate (Hydrocortisone 100 Mg/2 Ml Sdv) 100 mg IVP ONCE ONE Stop: 05/09/23 16:52 Last Admin: 05/09/23 17:42 Dose: 100 mg Sodium Chloride (Sodium Chloride 0.9%) 1,000 mls @ 999 mls/hr IV .Q1H1M ONE Stop: 05/09/23 12:28 Last Infusion: 05/09/23 17:29 Dose: Infused Ceftriaxone Sodium 1,000 mg/ (Sodium Chloride) 50 mls @ 100 mls/hr IV ONCE ONE; Protocol Stop: 05/09/23 13:31 Last Infusion: 05/09/23 17:29 Dose: Infused Sodium Chloride (Sodium Chloride 0.9%) 1,000 mls @ 100 mls/hr IV .Q10H [facility] Last Infusion: 05/11/23 18:41 Dose: Infused Azithromycin 500 mg/ Sodium (Chloride) 250 mls @ 250 mls/hr IV DAILY [facility]; Protocol Last Infusion: 05/11/23 10:15 Dose: Infused Prednisone (Prednisone 5 Mg Tablet) 5 mg PO BID [facility] Last Admin: 05/11/23 08:43 Dose: 5 mg Sodium Bicarbonate (Sodium Bicarbonate 650 Mg Tablet) 650 mg PO TID [facility] Last Admin: 05/11/23 08:43 Dose: 650 mg Allergies methotrexate Allergy (Unknown, Verified 05/09/23 12:57) ALGY-Rash Home Medications hydralazine 50 mg tablet 50 mg PO BID #60 tabs 12/11/21 [Rx Confirmed 05/09/23] hydralazine 25 mg tablet 25 mg PO BID #60 tabs 10/15/22 [Rx Confirmed 05/09/23] prednisone 5 mg tablet 5 mg PO BID #60 tabs 04/02/23 [Rx Confirmed 05/09/23] cyclobenzaprine 10 mg tablet 10 mg PO TID PRN muscle spasm #30 tabs 05/01/23 [Rx Confirmed 05/09/23] ondansetron 4 mg disintegrating tablet 4 mg PO Q8H PRN nausea and vomiting #30 tabs 05/01/23 [Rx Confirmed 05/09/23] acetaminophen 500 mg tablet 500 - 1,000 mg PO Q6H PRN Pain 05/09/23 [History Confirmed 05/09/23] diphenhydramine HCl 25 mg tablet (Sleep Aid (diphenhydramine)) 100 mg PO BEDTIME 05/09/23 [History Confirmed 05/09/23] ibuprofen 200 mg tablet 400 mg PO Q6H PRN Pain 05/09/23 [History Confirmed 05/09/23] lisinopril 20 mg-hydrochlorothiazide 12.5 mg tablet 1 tab PO DAILY 05/09/23 [History Confirmed 05/09/23] lorazepam 1 mg tablet 2 mg PO BEDTIME 05/09/23 [History Confirmed 05/09/23] venlafaxine 75 mg tablet 75 mg PO DAILY 05/09/23 [History Confirmed 05/09/23] Discharge Plan Discharge Patient Disposition: Xfer Other Condition: Stable Prescriptions: No Action hydralazine 50 mg tablet 50 mg PO BID Qty: 60 11RF Rx Instructions: take with 25 for total 75mg bid cyclobenzaprine 10 mg tablet 10 mg PO TID PRN (Reason: muscle spasm) Qty: 30 0RF ondansetron 4 mg tablet,disintegrating 4 mg PO Q8H PRN (Reason: nausea and vomiting) Qty: 30 0RF hydralazine 25 mg tablet 25 mg PO BID Qty: 60 11RF prednisone 5 mg tablet 5 mg PO BID Qty: 60 3RF venlafaxine 75 mg Tablet 75 mg PO DAILY Patient Comments: Sleep Aid (diphenhydramine) 25 mg Tablet 100 mg PO BEDTIME Tylenol Ex Str Rapid Release 500 mg Tablet 500 - 1,000 mg PO Q6H PRN (Reason: Pain) ibuprofen 200 mg Tablet 400 mg PO Q6H PRN (Reason: Pain) lisinopril-hydrochlorothiazide 20-12.5 mg tablet 1 tab PO DAILY lorazepam 1 mg tablet 2 mg PO BEDTIME Referrals: Sorin Bone MD [Primary Care Provider] - Patient Instructions: Opioid Safety Transfer Attestations Time Spent in Transfer Care: greater than 30 min Quality Metrics Clinical Quality Measures [ No reported AMI, CVA or VTE this stay] Coding Level of Care Code 62997 Total time (in minutes) for Discharge: 180 Diagnoses Bursitis of left shoulder M75.52 Muscle abscess M60.009 Left arm swelling M79.89
--- NOTE | 2023-05-13 20:50 | PC.NURSE ---
Written by Thomas Cisneros RN on 05/13/2023 at 2050 but placed in incorrect chart: This nurse called [facility] for transport on this patient. This nurse spoke to Sam, supervisor printing and stamping at [facility] and said that he did not have a truck available until tomorrow at the earliest. This nurse called [facility] to see if they had transport, they said to call [facility]. This nurse spoke to nurse Murillo, HERMELINDA and she informed me that the patients bed would not be lost; they were holding it for her even if it was tomorrow before she got there. After speaking to Lidia, this nurse called [facility] and was told they do not have any available transportation until the of this month. Sam from [facility] said he would call back with a better ETA. Will continue to care for and monitor patient until transport can be arranged for patient.
[2023-05-13] MEDS: LORazepam 1 mg Tablet 0.5 MG PO (21:02)
--- NOTE | 2023-05-13 21:17 | PC.NURSE ---
AMBULANCE TRANSFER NOTE This nurse called multiple area ambulance services including [facility], [facility], [facility], [facility] and [facility] transport of pt to [facility] due to [facility] being unavailable for this. All reported inability to do transport. Cylinder Tester aware and is notifying Dr Conroy
[2023-05-13] MEDS: acetaminophen 325 mg Tablet 650 MG PO (23:34)
[2023-05-14] MEDS: hyDRALAzine 20 mg/mL INJ 1 mL 10 MG IVP (00:04)
[2023-05-14 04:00] VITALS: BP 157/68; PULSE 73; RESP 17; TEMP 36.4; O2SAT 97
[2023-05-14] MEDS: piperacillin-tazobactam 3.375 GM in sodium chloride 0.9% (plus) 50 ML IV (04:39)
[2023-05-14 06:00] VITALS: PULSE 74
[2023-05-14 06:06] LABS: Hematocrit 26.8 % (36-47); Mean Corpuscular HGB Conc 32.1 g/dL (30-55); Mean Corpuscular Hemoglobin 29.2 pg (27-33); Mean Corpuscular Volume 90.8 fl (85-98); Mean Platelet Volume 9.4 fL (7.4-10.4); Platelet Count 202 10^3/cmm (157-399); Red Blood Count 2.95 10^6/uL (3.85-5.65); Red Cell Distribution Width 14.6 % (12.1-15.1); White Blood Count 6.12 10^3/uL (3.29-11.43)
[2023-05-14 06:33] LABS: Alanine Aminotransferase 19 U/L (0-33); Albumin Level 2.6 g/dL (3.5-5.2); Alkaline Phosphatase 87 U/L (35-105); Anion Gap 14.1 (5-19); Aspartate Amino Transferase 31 U/L (0-32); Blood Urea Nitrogen 21 mg/dL (8-23); Carbon Dioxide 20 mmol/L (22-29); Chloride 106 mmol/L (98-107); Globulin 3.8 g/dL (1.3-4.6); Glomerular Filtration Rate 101.3 mL/min (90-130); Glucose 86 mg/dL (65-115); Osmolality Calculated 286 mOsm/kg (285-295); Potassium 3.1 mmol/L (3.5-5.1); Sodium 137 mmol/L (136-145); Total Bilirubin 0.5 mg/dL (0.15-1.2); Total Protein 6.4 g/dL (6.6-8.7)
[2023-05-14 07:10] LABS: Slide Review Slide Review Perform
[2023-05-14 07:11] LABS: Absolute Segmented Neutrophil 4.5 10/cmm (1.6-7.1); Segmented Neutrophils 74 %; Total Cells Counted 100 (0-100)
[2023-05-14 07:12] LABS: Absolute Neutrophil 4.6 10^3/cmm (1.4-6.5); Band Neutrophils Absolute 0.1 10^3/cmm (0.0-1.2); Eosinophils 0 %; Lymphocytes 18 %; Lymphocytes Absolute 1.1 10^3/cmm (1.2-3.4); Monocytes Absolute 0.2 10^3/cmm (0.1-0.6); Platelet Estimate Normal (Normal)
[2023-05-14 08:00] VITALS: BP 187/77; PULSE 89; RESP 18; TEMP 36.4; O2SAT 97
--- NOTE | 2023-05-14 10:49 | PC.NURSE ---
Called Ji for the update on morning labs and to inform them that the patient ate half of her breakfast before this nurse realized and stopped her. Patient to be transported by EMS.
[2023-05-14 10:51] VITALS: BP 187/77; PULSE 89; RESP 18; TEMP 36.4; O2SAT 97
[2023-05-14 12:24] LABS: Aldolase 6.5 U/L (< OR = 8.1)
== END 2023-05-14 07:30 | disposition short-term general hospital (02) | DRG 871 ==
LOC: ER 13:36 → MEDSURG 17:02
PROVIDERS: Admitting Provider Student in an Organized Health Care Education/Training Program; Emergency Provider Emergency Medicine; PCP Family Medicine; Visit Provider Internal Medicine
DX: A41.9 Sepsis, unspecified organism (principal); G93.41 Metabolic encephalopathy; E87.1 Hypo-osmolality and hyponatremia; N39.0 Urinary tract infection, site not specified; N17.9 Acute kidney failure, unspecified; M60.012 Infective myositis, left shoulder; E87.20 Acidosis, unspecified; B95.62 Methicillin resistant Staphylococcus aureus infection as the cause of diseases classified elsewhere; E86.0 Dehydration; R65.20 Severe sepsis without septic shock; M75.52 Bursitis of left shoulder; D64.9 Anemia, unspecified; Z66 Do not resuscitate; M06.9 Rheumatoid arthritis, unspecified; Z79.52 Long term (current) use of systemic steroids; F32.A Depression, unspecified; M06.4 Inflammatory polyarthropathy; I10 Essential (primary) hypertension; G25.81 Restless legs syndrome; F41.9 Anxiety disorder, unspecified; M32.9 Systemic lupus erythematosus, unspecified
CPT/HCPCS: 10030; 36415; 36600; 51702; 71250; 73200; 73221; 74176; 80048; 80051; 80053; 80061; 80202; 80306; 81001; 82085; 82330; 82436; 82533; 82550; 82570; 82746; 82805; 83036; 83540; 83550; 83735; 84100; 84133; 84145; 84300; 84443; 85007; 85025; 85651; 85999; 86140; 86403; 87040; 87070; 87075; 87077; 87086; 87186; 87205; 87641; 88112; 88305; 93971; 94664; 96372; 96374; 97110; 97116; 97161; 97165; 97530; 99285; C9113; J0360; J0456; J0696; J1630; J1650; J1720; J2543; J3370; J7030; J7050; J7512

== ENCOUNTER 2023-05-23 10:50 | Emergency (ER) | payer OTHER, SELFPAY ==
[2023-05-23 11:01] VITALS: BP 210/97; PULSE 85; RESP 18; O2SAT 99; BMI 33.3
--- NOTE | 2023-05-23 11:13 | ED_ITS ---
HPI - Recheck/Abnormal Lab/Rx 2 General: Chief Complaint: Recheck/Abnormal Lab/Rx Stated Complaint: dr yvette, abnormal labs Time Seen by Provider: 05/23/23 11:01 History of Present Illness: Patient was sent over by oncology today for low potassium. She is over there for a vancomycin infusion and labs secondary to a shoulder infection and a found out that her potassium was 2.6 Her vancomyciN level was high and they have changed her dosing to once a day instead of twice a day also. Patient states she has not had any problem with her potassium in the past that usually her sodium. Patient is on lisinopril and hydrochlorothiazide as well as hydralazine to which she has not taken either 1 this morning. Review of Systems 2 General: Reports: 10 or more systems reviewed and unremarkable except in HPI and below PFSH ED 2 PFSH: Medical History Renal failure Hyponatremia UTI (urinary tract infection) Metabolic acidosis Acute kidney injury Hyponatremia Hypotension Thrombocytopenia Lupus Anxiety Restless leg syndrome Hypertension Fracture of radial head, right, closed FH: bilateral hip replacements Immunization counseling High risk medication use Pancytopenia Inflammatory arthritis Depression Surgical History History of delivery x2 Family History Other Unknown family medical history Social History Smoking and tobacco/nicotine status: never used tobacco/nicotine Alcohol intake: never Physical Exam 2 Const: COMMON NORMALS: no acute distress, average body habitus, patient oriented x3, no limitations, healthy appearing, alert and well nourished HENMT: COMMON NORMALS: normocephalic, atraumatic, hearing grossly normal bilaterally, external ears normal, Normal external nose present, moist oral mucous membranes and oropharynx normal HEAD & SCALP: normocephalic and atraumatic NOSE: Normal external nose present EXTERNAL EAR: Yes external ears normal Eye: COMMON NORMALS: Equal, round and reactive pupils present, EOMs intact bilaterally, conjunctivae normal and no scleral icterus CONJUNCTIVA: Yes conjunctivae normal PUPIL: Yes Equal, round and reactive pupils present Neck/C-Spine: COMMON NORMALS: no JVD Chest: COMMONS NORMALS: normal inspection of the chest and normal palpation of entire chest wall Resp: COMMON NORMALS: normal respiratory effort, No retractions, No use of accessory muscles and clear to auscultation bilaterally AUSCULTATION: clear to auscultation bilaterally Cardio: COMMON NORMALS: no JVD, regular rate, regular rhythm, S1 normal heart sound present, S2 normal heart sound present, No gallops present (Cardio), No clicks present (Cardio), No murmurs present (Cardio) and No rub (Cardio) R ATE: regular rate RHYTHM: regular rhythm HEART SOUNDS: S1 normal heart sound present and S2 normal heart sound present GI: COMMON NORMALS: Normal to inspection, nondistended, normoactive bowel sounds present, Soft to palpation, non-tender, No hepatosplenomegaly present and no masses PALPATION: Yes Soft to palpation and Yes No hepatosplenomegaly present Neuro: COMMON NORMALS: patient oriented x3 SENSORIUM/ORIENTATION: Yes alert Course 2 Vital Signs: Vital signs: Vital Signs Pulse Rate 85 05/23/23 11:01 Respiratory Rate 18 05/23/23 11:01 Blood Pressure 210/97 05/23/23 11:01 Pulse Oximetry 99 05/23/23 11:01 Oxygen Delivery Me thod Room Air 05/23/23 11:01 MDM - Recheck/Abnormal Lab/Rx Medical Decision Making Lab was rechecked and are results was potassium was 3.0 and magnesium was 1.6.. Patient was given 40 mEq oral potassium, 20 mEq IV potassium and 1 g of IV magnesium. Patient will be discharged home with a prescription for potassium and she should have it rechecked at her next appointment to have her bank rechecked which is on Friday. Differential Diagnosis Unlikely encounter for medication refill, encounter for wound recheck, encounter for recheck of burn, encounter for removal of sutures or warfarin-induced coagulopathy Medical Records I reviewed the patient's medical records. Lab Data I reviewed the patient's lab results. 05/23/23 11:17 05/23/23 11:17 Laboratory Results WBC 8.63 10^3/uL (3.29-11.43) 05/23/23 11:17 RBC 3.26 10^6/uL (3.85-5.65) L 05/23/23 11:17 Hgb 9.70 g/dL (11.27-16.99) L 05/23/23 11:17 Hct 30.1 % (36-47) L 05/23/23 11:17 MCV 92.3 fl (85-98) 05/23/23 11:17 MCH 29.8 pg (27-33) 05/23/23 11:17 MCHC 32.2 g/dL (30-55) 05/23/23 11:17 RDW 15.3 % (12.1-15.1) H 05/23/23 11:17 Plt Count 124 10^3/cmm (157-399) L 05/23/23 11:17 MPV 9.6 fL (7.4-10.4) 05/23/23 11:17 Neut % (Auto) 84.2 % 05/23/23 11:17 Lymph % (Auto) 8.8 % 05/23/23 11:17 [place] % (Auto) 4.5 % 05/23/23 11:17 Eos % (Auto) 1.0 % 05/23/23 11:17 Baso % (Auto) 1.2 % 05/23/23 11:17 Neut # (Auto) 7.26 10^3/uL (1.8-7.7) 05/23/23 11:17 Lymph # (Auto) 0.8 10^3/uL (0.8-4.8) 05/23/23 11:17 [place] # (Auto) 0.4 10^3/uL (0.2-0.9) 05/23/23 11:17 Eos # (Auto) 0.1 10^3/uL (0.0-0.8) 05/23/23 11:17 Baso # (Auto) 0.1 10^3/uL (0.0-0.1) 05/23/23 11:17 Nucleated RBC % (auto) 0 % 05/23/23 11:17 Nucleated RBCs # 0.0 /100WBC 05/23/23 11:17 Sodium 137 mmol/L (136-145) 05/23/23 11:17 Potassium 3.0 mmol/L (3.5-5.1) L 05/23/23 11:17 Chloride 96 mmol/L (98-107) L 05/23/23 11:17 Carbon Dioxide 27 mmol/L (22-29) 05/23/23 11:17 Anion Gap 17.0 (5-19) 05/23/23 11:17 BUN 14 mg/dL (8-23) 05/23/23 11:17 Creatinine 1.0 mg/dL (0.5-0.9) H 05/23/23 11:17 GFR Calculation 56.2 mL/min (90-130) L 05/23/23 11:17 Glucose 110 mg/dL (65-115) 05/23/23 11:17 Calculated Osmolality 285 mOsm/kg (285-295) 05/23/23 11:17 Calcium 8.3 mg/dL (8.5-10.5) L 05/23/23 11:17 Magnesium 1.6 mg/dL (1.7-2.3) L 05/23/23 11:17 No radiology studies performed this visit Discharge Plan Discharge Patient Disposition: Home Clinical Impression: Acute hypokalemia, Hypomagnesemia Condition: Stable Prescriptions: New potassium chloride 20 mEq tablet extended release 20 meq PO BID Qty: 14 0RF No Action hydralazine 25 mg tablet 25 mg PO BID Qty: 60 11RF prednisone 5 mg tablet 5 mg PO BID Qty: 60 3RF venlafaxine 75 mg Tablet 75 mg PO DAILY Patient Comments: acetaminophen [Tylenol Ex Str Rapid Release] 500 mg Tablet 500 - 1,000 mg PO Q6H PRN (Reason: Pain) ibuprofen 200 mg Tablet 400 mg PO Q6H PRN (Reason: Pain) lisinopril-hydrochlorothiazide 20-12.5 mg tablet 1 tab PO DAILY lorazepam 1 mg tablet 2 mg PO BEDTIME hydrocodone-acetaminophen 5-325 mg tablet 1 tab PO Q4H PRN (Reason: Pain) Aspir-81 81 mg Tablet,Delayed Release (Dr/Ec) 81 mg PO BID Rx Instructions: for 21 days vancomycin 1,000 mg Recon Soln See Rx Instructions .ROUTE .COMPLEX Rx Instructions: (been taking) 1.5g intravenously bid@ (discharge papers from [facility])1.5g q24h (per pts [facility] told then bid but then changed to q24h and didnt inform them of change) fluoxetine [Prozac] 20 mg Capsule 20 mg PO DAILY Discharge Orders: Discharge ED (Routine); Ordered 05/23/23 Ordered By: Ketlon Jeffries Referrals: Sorin Campos MD [Primary Care Provider] - 1 week Patient Instructions: Hypokalemia, Hypomagnesemia (ED) Activity Restrictions/Additional Instructions: You are given both potassium and magnesium in your IV as well as oral potassium. You will be discharged home with a prescription for potassium. Please have them recheck it the next time you get your Vanco level checked. 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
[2023-05-23 11:24] LABS: Basophils # 0.1 10^3/uL (0.0-0.1); Basophils % 1.2 %; Eosinophils # 0.1 10^3/uL (0.0-0.8); Hematocrit 30.1 % (36-47); Lymphocytes # 0.8 10^3/uL (0.8-4.8); Lymphocytes % 8.8 %; Mean Corpuscular HGB Conc 32.2 g/dL (30-55); Mean Corpuscular Hemoglobin 29.8 pg (27-33); Mean Corpuscular Volume 92.3 fl (85-98); Mean Platelet Volume 9.6 fL (7.4-10.4); Monocytes # 0.4 10^3/uL (0.2-0.9); Monocytes % 4.5 %; Neutrophils # 7.26 10^3/uL (1.8-7.7); Neutrophils % 84.2 %; Nucleated Red Blood Cells % 0 %; Platelet Count 124 10^3/cmm (157-399); Red Blood Count 3.26 10^6/uL (3.85-5.65); Red Cell Distribution Width 15.3 % (12.1-15.1); White Blood Count 8.63 10^3/uL (3.29-11.43)
[2023-05-23] MEDS: lidocaine 1% 5 ML in potassium chloride premix 100 ML 52.5 ML IV (11:30)
[2023-05-23] MEDS: lisinopril 20 mg Tablet PO (11:30)
[2023-05-23] MEDS: potassium chloride ER 20 mEq Tablet 40 MEQ PO (11:30)
[2023-05-23] MEDS: hyDRALAzine 25 mg Tablet 75 MG PO (11:30)
[2023-05-23 11:40] LABS: Blood Urea Nitrogen 14 mg/dL (8-23); Calcium 8.3 mg/dL (8.5-10.5); Carbon Dioxide 27 mmol/L (22-29); Chloride 96 mmol/L (98-107); Glomerular Filtration Rate 56.2 mL/min (90-130); Glucose 110 mg/dL (65-115); Magnesium 1.6 mg/dL (1.7-2.3); Osmolality Calculated 285 mOsm/kg (285-295); Sodium 137 mmol/L (136-145)
[2023-05-23 11:48] LABS: Slide Review Slide Review Perform
--- NOTE | 2023-05-23 12:18 | PC.NURSE ---
PT HAS PICC LINE, PT ASKED IF ALL MEDS CAN GO THROUGH HER PICC LINE. SPOKE WITH DR. CRAIG ABOUT GIVING MAG AFTER POTASSIUM IS INFUSED, MAG WILL BE APPROX [address] CRAIG OK'D THAT MAG COULD BE GIVEN LATE AFTER K+ INFUSION.
[2023-05-23] MEDS: magnesium sulfate premix 1 GM/100 ML PIGGYBACK IV (13:58)
--- NOTE | 2023-05-23 15:20 | PC.PHAR ---
pt and pts verified pts medications-pt states she is now only taking hydralazine 25mg bid filled 04/08/23 90d/s pt states out of the 50mg bid for a month [facility] states last filled may 2022 90d/s-pts states he has been giving the vancomycin 1.5g bid@ states [facility] told them to do bid but on discharge paper it has 1.5g q24h -pt states she is still taking prozac per nilo rph from [facility] states last filled 20mg daily 07/23/22 90d/s and 40mg daily filled 08/11/22 30d/s states they have a prozac as dced and changed to effexor-pt states she takes effexor and prozac-notes are made in the pharmacy comments
== END 2023-05-23 15:33 | disposition home or self-care (01) ==
PROVIDERS: Emergency Medicine; Emergency Provider Emergency Medicine; PCP Family Medicine
DX: E87.6 Hypokalemia (principal); E83.42 Hypomagnesemia; Z79.82 Long term (current) use of aspirin; I10 Essential (primary) hypertension
CPT/HCPCS: 36415; 36592; 80048; 80202; 83735; 85025; 96374; 96375; 99284; J3475; J3480

== ENCOUNTER 2023-05-29 09:30 | Oncology outpatient (recurring) (ONCR) | payer OTHER, SELFPAY ==
[2023-05-23 10:20] LABS: Anion Gap 15.6 (5-19); Blood Urea Nitrogen 14 mg/dL (8-23); Carbon Dioxide 27 mmol/L (22-29); Chloride 97 mmol/L (98-107); Glomerular Filtration Rate 56.2 mL/min (90-130); Glucose 105 mg/dL (65-115); Osmolality Calculated 285 mOsm/kg (285-295); Sodium 137 mmol/L (136-145)
[2023-05-23 10:23] LABS: Potassium 2.6 mmol/L (3.5-5.1)
[2023-05-23 10:25] LABS: Vancomycin Trough 43.7 ug/mL (10-15)
--- NOTE | 2023-05-23 10:58 | PC.NURSE ---
Received pts critical lab results- vanc 43.7, Potassium- 2.6. Called Mandeep with pharmacy, notified of pts vanc levels. States pt needs to hold vanc until friday when she returns to [facility] for another blood draw. Called pts ordering provider, spoke with nurse Elyssa, notified of pts critical lab results. Elyssa states to have pt go to ED for evaluation for hypokalemia. Called pt,spoke with spouse, notified of results. Educated on holding vanc until friday after labs and to go to ED for evaluation/potassium infusion. Both pt and spouse verbalized understanding. [employer] is faxing labs to both providers office and pharmacy.
[2023-05-26 10:00] LABS: Anion Gap 14.7 (5-19); Blood Urea Nitrogen 18 mg/dL (8-23); Calcium 8.6 mg/dL (8.5-10.5); Carbon Dioxide 27 mmol/L (22-29); Chloride 98 mmol/L (98-107); Glomerular Filtration Rate 45.5 mL/min (90-130); Glucose 101 mg/dL (65-115); Osmolality Calculated 284 mOsm/kg (285-295); Potassium 3.7 mmol/L (3.5-5.1); Sodium 136 mmol/L (136-145); Vancomycin Trough 12.6 ug/mL (10-15)
[2023-05-29 10:16] LABS: Vancomycin Trough 21.8 ug/mL (10-15)
[2023-05-29 10:25] LABS: Anion Gap 14.5 (5-19); Blood Urea Nitrogen 19 mg/dL (8-23); Carbon Dioxide 25 mmol/L (22-29); Chloride 101 mmol/L (98-107); Glomerular Filtration Rate 45.5 mL/min (90-130); Glucose 110 mg/dL (65-115); Osmolality Calculated 285 mOsm/kg (285-295); Potassium 4.5 mmol/L (3.5-5.1); Sodium 136 mmol/L (136-145)
== END 2023-05-29 23:59 | disposition home or self-care (01) ==
PROVIDERS: PCP Family Medicine; Visit Provider Internal Medicine Infectious Disease
DX: A41.9 Sepsis, unspecified organism (principal); Z53.9 Procedure and treatment not carried out, unspecified reason; B95.62 Methicillin resistant Staphylococcus aureus infection as the cause of diseases classified elsewhere
CPT/HCPCS: 36415; 36592; 80048; 80202; 86140

== ENCOUNTER 2023-06-17 09:00 | Oncology outpatient (recurring) (ONCR) | payer OTHER, SELFPAY ==
[2023-06-03 08:56] LABS: Basophils # 0.1 10^3/uL (0.0-0.1); Basophils % 1.6 %; Eosinophils # 0.1 10^3/uL (0.0-0.8); Eosinophils % 2.4 %; Hematocrit 29.8 % (36-47); Lymphocytes # 0.7 10^3/uL (0.8-4.8); Lymphocytes % 18.5 %; Mean Corpuscular HGB Conc 32.6 g/dL (30-55); Mean Corpuscular Hemoglobin 29.5 pg (27-33); Mean Corpuscular Volume 90.6 fl (85-98); Mean Platelet Volume 9.6 fL (7.4-10.4); Monocytes # 0.3 10^3/uL (0.2-0.9); Monocytes % 7.8 %; Neutrophils # 2.58 10^3/uL (1.8-7.7); Neutrophils % 69.4 %; Nucleated Red Blood Cells % 0 %; Platelet Count 204 10^3/cmm (157-399); Red Blood Count 3.29 10^6/uL (3.85-5.65); Red Cell Distribution Width 14.9 % (12.1-15.1); White Blood Count 3.72 10^3/uL (3.29-11.43)
[2023-06-03 09:19] LABS: Alanine Aminotransferase 55 U/L (0-33); Albumin Level 3.3 g/dL (3.5-5.2); Alkaline Phosphatase 140 U/L (35-105); Anion Gap 16.9 (5-19); Aspartate Amino Transferase 50 U/L (0-32); Blood Urea Nitrogen 23 mg/dL (8-23); Calcium 8.5 mg/dL (8.5-10.5); Carbon Dioxide 25 mmol/L (22-29); Chloride 98 mmol/L (98-107); Globulin 3.7 g/dL (1.3-4.6); Glomerular Filtration Rate 50.3 mL/min (90-130); Glucose 123 mg/dL (65-115); Osmolality Calculated 287 mOsm/kg (285-295); Potassium 3.9 mmol/L (3.5-5.1); Sodium 136 mmol/L (136-145); Total Bilirubin 0.7 mg/dL (0.15-1.2)
[2023-06-03 09:48] LABS: Vancomycin Trough 27.7 ug/mL (10-15)
[2023-06-03 09:52] LABS: Erythrocyte Sedimentation Rate 34 mm/hr (0-15)
[2023-06-05 09:57] LABS: Vancomycin Trough 17.1 ug/mL (10-15)
[2023-06-05 09:58] LABS: Anion Gap 16.4 (5-19); Blood Urea Nitrogen 25 mg/dL (8-23); Calcium 8.7 mg/dL (8.5-10.5); Carbon Dioxide 27 mmol/L (22-29); Chloride 97 mmol/L (98-107); Glomerular Filtration Rate 50.3 mL/min (90-130); Glucose 101 mg/dL (65-115); Osmolality Calculated 289 mOsm/kg (285-295); Potassium 3.4 mmol/L (3.5-5.1); Sodium 137 mmol/L (136-145)
[2023-06-10 10:26] LABS: Basophils % 1.4 %; Eosinophils # 0.1 10^3/uL (0.0-0.8); Eosinophils % 4.5 %; Hematocrit 27.5 % (36-47); Lymphocytes % 36.1 %; Mean Corpuscular HGB Conc 33.1 g/dL (30-55); Mean Corpuscular Hemoglobin 29.5 pg (27-33); Mean Corpuscular Volume 89.3 fl (85-98); Mean Platelet Volume 9.7 fL (7.4-10.4); Monocytes # 0.5 10^3/uL (0.2-0.9); Monocytes % 18.8 %; Neutrophils # 1.12 10^3/uL (1.8-7.7); Neutrophils % 38.9 %; Nucleated Red Blood Cells % 0 %; Platelet Count 141 10^3/cmm (157-399); Red Blood Count 3.08 10^6/uL (3.85-5.65); Red Cell Distribution Width 14.5 % (12.1-15.1); White Blood Count 2.88 10^3/uL (3.29-11.43)
[2023-06-10 10:34] LABS: Erythrocyte Sedimentation Rate 25 mm/hr (0-15)
[2023-06-10 10:53] LABS: Vancomycin Trough 16.3 ug/mL (10-15)
[2023-06-10 10:54] LABS: Alanine Aminotransferase 71 U/L (0-33); Albumin Level 3.5 g/dL (3.5-5.2); Alkaline Phosphatase 144 U/L (35-105); Anion Gap 15.5 (5-19); Aspartate Amino Transferase 51 U/L (0-32); Blood Urea Nitrogen 28 mg/dL (8-23); Calcium 8.5 mg/dL (8.5-10.5); Carbon Dioxide 24 mmol/L (22-29); Chloride 100 mmol/L (98-107); Globulin 3.3 g/dL (1.3-4.6); Glomerular Filtration Rate 63.4 mL/min (90-130); Glucose 115 mg/dL (65-115); Osmolality Calculated 288 mOsm/kg (285-295); Potassium 3.5 mmol/L (3.5-5.1); Sodium 136 mmol/L (136-145); Total Bilirubin 0.5 mg/dL (0.15-1.2); Total Protein 6.8 g/dL (6.6-8.7)
[2023-06-12 09:51] LABS: Blood Urea Nitrogen 21 mg/dL (8-23); Calcium 8.6 mg/dL (8.5-10.5); Carbon Dioxide 24 mmol/L (22-29); Chloride 102 mmol/L (98-107); Glomerular Filtration Rate 72.7 mL/min (90-130); Glucose 97 mg/dL (65-115); Osmolality Calculated 287 mOsm/kg (285-295); Sodium 137 mmol/L (136-145); Vancomycin Trough 4.7 ug/mL (10-15)
== END 2023-06-29 23:59 | disposition home or self-care (01) ==
PROVIDERS: PCP Family Medicine; Visit Provider Internal Medicine Infectious Disease
DX: Z53.9 Procedure and treatment not carried out, unspecified reason (principal)
CPT/HCPCS: 36415; 36592; 80048; 80053; 80202; 85025; 85651; 86140

== ENCOUNTER → 2023-08-04 12:31 | Outpatient (BNVA) | payer OTHER, SELFPAY | PROVIDERS: PCP Family Medicine; Visit Provider Internal Medicine Rheumatology | DX: Z79.899 Other long term (current) drug therapy (principal); M19.90 Unspecified osteoarthritis, unspecified site | CPT/HCPCS: 36415; 80076; 85025 ==

== ENCOUNTER → 2023-08-18 14:48 | Outpatient (BNVA) | payer OTHER, SELFPAY | PROVIDERS: PCP Family Medicine; Visit Provider Family Medicine | DX: M19.90 Unspecified osteoarthritis, unspecified site (principal); I10 Essential (primary) hypertension; M60.009 Infective myositis, unspecified site; Z79.899 Other long term (current) drug therapy | CPT/HCPCS: 80053; 84550; 85025; 85651; 86140 ==

== ENCOUNTER → 2023-09-08 15:29 | Outpatient (BNVA) | payer OTHER, SELFPAY | PROVIDERS: PCP Family Medicine; Visit Provider Family Medicine | DX: M00.9 Pyogenic arthritis, unspecified (principal) | CPT/HCPCS: 80053; 85025; 85651; 86140 ==

== ENCOUNTER → 2023-12-16 12:51 | Outpatient (BNVA) | payer OTHER, SELFPAY | PROVIDERS: PCP Family Medicine; Visit Provider Student in an Organized Health Care Education/Training Program | DX: M79.641 Pain in right hand (principal); M25.641 Stiffness of right hand, not elsewhere classified | CPT/HCPCS: 73130 ==

== ENCOUNTER 2023-12-30 12:32 | Outpatient (RCR) | payer OTHER, SELFPAY | END 2024-01-29 23:59 | disposition home or self-care (01) | LOC: SOT 12:32 | PROVIDERS: PCP Family Medicine; Visit Provider Student in an Organized Health Care Education/Training Program | DX: M79.641 Pain in right hand (principal) | CPT/HCPCS: 97022; 97110; 97140; 97165; 97530; G0283 ==

== ENCOUNTER 2024-01-14 09:55 | Outpatient (CLI) | payer OTHER, SELFPAY ==
[2024-01-14 10:41] LABS: Basophils # 0.1 10^3/uL (0.0-0.1); Basophils % 1.7 %; Eosinophils # 0.1 10^3/uL (0.0-0.8); Eosinophils % 2.6 %; Hematocrit 35.8 % (36-47); Lymphocytes # 1.8 10^3/uL (0.8-4.8); Lymphocytes % 34.4 %; Mean Corpuscular HGB Conc 33.2 g/dL (30-55); Mean Corpuscular Volume 87.1 fl (85-98); Mean Platelet Volume 9.4 fL (7.4-10.4); Monocytes # 0.4 10^3/uL (0.2-0.9); Monocytes % 6.7 %; Neutrophils # 2.89 10^3/uL (1.8-7.7); Nucleated Red Blood Cells % 0 %; Platelet Count 204 10^3/cmm (157-399); Red Blood Count 4.11 10^6/uL (3.85-5.65); Red Cell Distribution Width 13.2 % (12.1-15.1); White Blood Count 5.35 10^3/uL (3.29-11.43)
[2024-01-14 11:03] LABS: Erythrocyte Sedimentation Rate 18 mm/hr (0-15)
[2024-01-14 11:17] LABS: Alanine Aminotransferase 16 U/L (0-33); Alkaline Phosphatase 78 U/L (35-105); Aspartate Amino Transferase 24 U/L (0-32); Globulin 2.8 g/dL (1.3-4.6); Glomerular Filtration Rate 72.4 mL/min (90-130); Iron 51 ug/dL (37-145); Total Bilirubin 0.5 mg/dL (0.15-1.2); Total Protein 6.8 g/dL (6.6-8.7)
== END 2024-01-14 09:56 | disposition home or self-care (01) ==
LOC: LAB 09:56
PROVIDERS: PCP Family Medicine; Visit Provider Internal Medicine Rheumatology
DX: Z79.899 Other long term (current) drug therapy (principal); M19.90 Unspecified osteoarthritis, unspecified site; G25.81 Restless legs syndrome
CPT/HCPCS: 80076; 82565; 83540; 85025; 85651; 86140

== ENCOUNTER 2024-01-27 12:27 | Outpatient (CLI) | payer OTHER, SELFPAY ==
--- NOTE | 2024-01-27 12:31 | XRR_ITS ---
PROCEDURE INFORMATION: Exam: XR Right Wrist Exam date and time: 01/27/2024 12:40 PM Age: 63 years old Clinical indication: Injury or trauma; Blunt trauma (contusions or hematomas); Right; Prior surgery; Surgery date: 6+ months; Surgery type: Staff infection surgery on wrist; Patient HX: Fall x1 week, pain around circumference of writs that travels up arm nearly to shoulder TECHNIQUE: Imaging protocol: Radiologic exam of the right wrist. Views: 3 or more views. COMPARISON: 1. CR XR hand RT min 3V* [id number] 12/16/2023 1:05 PM 2. CR XR wrist RT 2V [id number] 05/08/2023 2:30 PM FINDINGS: Bones/joints: No acute fracture or dislocation. Stable small corticated ossicle at the ulnar styloid. Mild degenerative change of the 1st CMC joint. Remaining joints are maintained. Soft tissues: Unremarkable. XR/XR wrist RT min 3V* [id number] IMPRESSION: No acute findings.
== END 2024-01-27 12:28 | disposition home or self-care (01) ==
LOC: RAD 12:28
PROVIDERS: PCP Family Medicine; Visit Provider Family Medicine
DX: M25.531 Pain in right wrist (principal)
CPT/HCPCS: 73110

== ENCOUNTER 2024-01-30 06:00 | Outpatient (RCR) | payer OTHER, SELFPAY | END 2024-02-28 23:59 | disposition home or self-care (01) | LOC: SOT 06:00 | PROVIDERS: PCP Family Medicine; Visit Provider Student in an Organized Health Care Education/Training Program | DX: M79.641 Pain in right hand (principal) | CPT/HCPCS: 97022; 97110; G0283 ==

== ENCOUNTER 2024-04-15 09:11 | Outpatient (CLI) | payer OTHER, SELFPAY ==
[2024-04-15 09:47] LABS: Basophils # 0.1 10^3/uL (0.0-0.1); Eosinophils # 0.1 10^3/uL (0.0-0.8); Eosinophils % 1.6 %; Hematocrit 34.1 % (36-47); Lymphocytes # 1.4 10^3/uL (0.8-4.8); Lymphocytes % 24.8 %; Mean Corpuscular HGB Conc 33.4 g/dL (30-55); Mean Corpuscular Hemoglobin 29.4 pg (27-33); Mean Corpuscular Volume 87.9 fl (85-98); Mean Platelet Volume 9.6 fL (7.4-10.4); Monocytes # 0.4 10^3/uL (0.2-0.9); Monocytes % 7.6 %; Neutrophils # 3.72 10^3/uL (1.8-7.7); Neutrophils % 64.7 %; Nucleated Red Blood Cells % 0 %; Platelet Count 134 10^3/cmm (157-399); Red Blood Count 3.88 10^6/uL (3.85-5.65); Red Cell Distribution Width 13.7 % (12.1-15.1); White Blood Count 5.76 10^3/uL (3.29-11.43)
[2024-04-15 10:05] LABS: Erythrocyte Sedimentation Rate 10 mm/hr (0-15)
[2024-04-15 10:06] LABS: Alanine Aminotransferase 49 U/L (0-33); Albumin Level 3.8 g/dL (3.5-5.2); Alkaline Phosphatase 87 U/L (35-105); Aspartate Amino Transferase 44 U/L (0-32); Total Bilirubin 0.5 mg/dL (0.15-1.2); Total Protein 6.8 g/dL (6.6-8.7)
== END 2024-04-15 09:12 | disposition home or self-care (01) ==
PROVIDERS: PCP Family Medicine; Visit Provider Internal Medicine Rheumatology
DX: Z79.899 Other long term (current) drug therapy (principal); M19.90 Unspecified osteoarthritis, unspecified site
CPT/HCPCS: 36415; 80076; 82565; 85025; 85651; 86140

== ENCOUNTER → 2024-04-19 12:00 | Outpatient (BNVA) | payer OTHER, SELFPAY | PROVIDERS: PCP Family Medicine; Visit Provider Internal Medicine Rheumatology | DX: M54.2 Cervicalgia (principal); M05.79 Rheumatoid arthritis with rheumatoid factor of multiple sites without organ or systems involvement | CPT/HCPCS: 72040 ==

== ENCOUNTER 2024-06-14 10:26 | Outpatient (CLI) | payer OTHER, SELFPAY ==
[2024-06-14 11:13] LABS: Basophils # 0.1 10^3/uL (0.0-0.1); Basophils % 1.3 %; Eosinophils # 0.1 10^3/uL (0.0-0.8); Eosinophils % 3.1 %; Hematocrit 38.1 % (36-47); Lymphocytes # 1.2 10^3/uL (0.8-4.8); Lymphocytes % 30.2 %; Mean Corpuscular HGB Conc 34.4 g/dL (30-55); Mean Corpuscular Volume 87.4 fl (85-98); Mean Platelet Volume 9.6 fL (7.4-10.4); Monocytes # 0.4 10^3/uL (0.2-0.9); Monocytes % 9.3 %; Neutrophils # 2.17 10^3/uL (1.8-7.7); Neutrophils % 55.8 %; Nucleated Red Blood Cells % 0 %; Platelet Count 134 10^3/cmm (157-399); Red Blood Count 4.36 10^6/uL (3.85-5.65); Red Cell Distribution Width 13.1 % (12.1-15.1); White Blood Count 3.88 10^3/uL (3.29-11.43)
[2024-06-14 11:17] LABS: Erythrocyte Sedimentation Rate 19 mm/hr (0-15)
[2024-06-14 11:36] LABS: Alanine Aminotransferase 19 U/L (0-33); Alkaline Phosphatase 99 U/L (35-105); Aspartate Amino Transferase 28 U/L (0-32); Globulin 2.8 g/dL (1.3-4.6); Total Bilirubin 0.7 mg/dL (0.15-1.2); Total Protein 6.8 g/dL (6.6-8.7)
== END 2024-06-14 10:27 | disposition home or self-care (01) ==
LOC: LAB 10:29
PROVIDERS: PCP Family Medicine; Visit Provider Internal Medicine Rheumatology
DX: M05.79 Rheumatoid arthritis with rheumatoid factor of multiple sites without organ or systems involvement (principal); M54.2 Cervicalgia
CPT/HCPCS: 36415; 80076; 82565; 85025; 85651; 86140

== ENCOUNTER → 2024-07-26 11:35 | Outpatient (BNVA) | payer OTHER, SELFPAY | PROVIDERS: PCP Family Medicine; Visit Provider Internal Medicine Rheumatology | DX: M19.042 Primary osteoarthritis, left hand (principal) | CPT/HCPCS: 73130 ==

== ENCOUNTER 2024-08-03 15:49 | Outpatient (RCR) | payer OTHER, SELFPAY | END 2024-08-28 23:59 | disposition home or self-care (01) | LOC: SPT 15:49 | PROVIDERS: PCP Family Medicine; Visit Provider Internal Medicine Rheumatology | DX: R29.6 Repeated falls (principal) | CPT/HCPCS: 97110; 97162; 97530 ==

== ENCOUNTER 2024-08-29 05:00 | Outpatient (RCR) | payer OTHER, SELFPAY | END 2024-09-27 15:46 | disposition home or self-care (01) | LOC: SPT 05:00 | PROVIDERS: PCP Family Medicine; Visit Provider Internal Medicine Rheumatology | DX: R29.6 Repeated falls (principal) | CPT/HCPCS: 97110; 97112 ==

== ENCOUNTER 2024-11-24 07:33 | Outpatient (CLI) | payer OTHER, SELFPAY ==
--- NOTE | 2024-11-24 07:42 | MR_ITS ---
WS: [id number] MRI BRAIN WITH HIGH-RESOLUTION IMAGING THROUGH THE INTERNAL AUDITORY CANALS WITHOUT AND WITH CONTRAST HISTORY: BILATERAL HEARING LOSS,SENSORINEURAL COMPARISON: None available. TECHNIQUE: Multiplanar, multisequence imaging is performed through the brain. Additional 3 mm imaging performed in multiple planes through the internal auditory canal. Postcontrast imaging with 18 ml's of MultiHance. Diffusion imaging is normal. No acute infarct. Very mild atrophy and volume loss. Mild small vessel disease in the periventricular white matter. Seen best on the FLAIR imaging are bilateral areas of cortical increased signal. Increased cortical signal posterior RIGHT temporal lobe, posterior LEFT occipital lobe, LEFT paramedian occipital lobe and superior vermis. No diffusion abnormalities in these locations. There is very minimal enhancement in the vermis. These may be prior remote infarcts. These will need to be further evaluated to ensure resolution. Ventricles and extra-axial spaces are normal. No inferior displacement of cerebellar tonsils. Clivus and pituitary gland are normal. Internal and external auditory canals: Unremarkable. Cranial nerves VII and VIII complexes: Unremarkable. No enhancement or mass. Cerebellopontine angles: Normal. Paranasal sinuses: Normal. Mastoid air cells: Normal. Calvarium and scalp: Normal. Visualized yurok of Way and dural venous sinuses demonstrate no abnormality. MR/MR iac's wo/w con* [id number] IMPRESSION: 1. No mass or signal abnormality at the cerebellopontine angle or internal aud itory canals. 2. No diffusion abnormality or acute infarct. 3. Several bilateral cortical hyperintensities are identified. These include a small segment of the cortex involving the posterior RIGHT temporal lobe, poste rior LEFT occipital lobe, LEFT paramedian occipital lobe and superior vermis. T here is mild enhancement in the hyperintensity involving the vermis. Nonspecifi c changes. These can be seen with subacute infarcts and vasculitis. Less likely infection or neoplasm as there is no enhancement. Recommend follow-up MRI brai n in 4 to 6 weeks with and without IV contrast. Consider evaluation by neurolog y. 4. Mild cerebral volume loss and small vessel disease in the periventricular w klaus matter.
[2024-11-24] MEDS: gadobenate dimeglumine 20 mL vial IV (09:13)
== END 2024-11-24 07:34 | disposition home or self-care (01) ==
LOC: RAD 07:34
PROVIDERS: PCP Family Medicine; Visit Provider Specialist
DX: H90.3 Sensorineural hearing loss, bilateral (principal); R90.89 Other abnormal findings on diagnostic imaging of central nervous system; I63.532 Cerebral infarction due to unspecified occlusion or stenosis of left posterior cerebral artery; R90.82 White matter disease, unspecified
CPT/HCPCS: 70553

== ENCOUNTER 2024-11-25 13:42 | Outpatient (CLI) | payer OTHER, SELFPAY ==
[2024-11-25 14:58] LABS: Hematocrit 37.4 % (36-47); Hemoglobin 13.10 g/dL (11.27-16.99); Mean Corpuscular HGB Conc 35.0 g/dL (30-55); Mean Corpuscular Hemoglobin 29.4 pg (27-33); Mean Corpuscular Volume 84.0 fl (85-98); Nucleated Red Blood Cells % 0 %; Platelet Count 141 10^3/cmm (157-399); Red Blood Count 4.45 10^6/uL (3.85-5.65); White Blood Count 4.48 10^3/uL (3.29-11.43)
[2024-11-25 15:23] LABS: Alanine Aminotransferase 25 U/L (0-33); Albumin Level 4.0 g/dL (3.5-5.2); Alkaline Phosphatase 116 U/L (35-105); Aspartate Amino Transferase 32 U/L (0-32); Globulin 3.2 g/dL (1.3-4.6); Total Protein 7.2 g/dL (6.6-8.7)
== END 2024-11-25 13:43 | disposition home or self-care (01) ==
LOC: LAB 13:42
PROVIDERS: PCP Family Medicine; Visit Provider Internal Medicine Rheumatology
DX: Z79.899 Other long term (current) drug therapy (principal)
CPT/HCPCS: 36415; 80076; 82565; 85025; 85651; 86140

== ENCOUNTER → 2024-12-02 14:30 | Outpatient (BNVA) | payer OTHER, SELFPAY | PROVIDERS: PCP Family Medicine; Visit Provider Internal Medicine Rheumatology | DX: Z79.899 Other long term (current) drug therapy (principal) | CPT/HCPCS: 36415; 80076; 82565; 85025; 85651; 86140 ==

== ENCOUNTER 2024-12-31 11:39 | Outpatient (CLI) | payer OTHER, SELFPAY ==
[2024-12-31 13:44] LABS: Hematocrit 37.3 % (36-47); Hemoglobin 12.80 g/dL (11.27-16.99); Mean Corpuscular HGB Conc 34.3 g/dL (30-55); Mean Corpuscular Hemoglobin 29.5 pg (27-33); Mean Corpuscular Volume 85.9 fl (85-98); Nucleated Red Blood Cells % 0 %; Platelet Count 138 10^3/cmm (157-399); Red Blood Count 4.34 10^6/uL (3.85-5.65); White Blood Count 4.01 10^3/uL (3.29-11.43)
[2024-12-31 13:58] LABS: Alanine Aminotransferase 34 U/L (0-33); Albumin Level 3.8 g/dL (3.5-5.2); Alkaline Phosphatase 99 U/L (35-105); Globulin 3.4 g/dL (1.3-4.6); Total Protein 7.2 g/dL (6.6-8.7)
[2024-12-31 14:41] LABS: Aspartate Amino Transferase 39 U/L (0-32)
== END 2024-12-31 11:40 | disposition home or self-care (01) ==
LOC: LAB 11:41
PROVIDERS: PCP Family Medicine; Visit Provider Internal Medicine Rheumatology
DX: Z79.899 Other long term (current) drug therapy (principal)
CPT/HCPCS: 36415; 80076; 82565; 85025; 85651; 86140

== ENCOUNTER 2025-01-10 15:02 | Outpatient (CLI) | payer OTHER, SELFPAY ==
--- NOTE | 2025-01-10 15:00 | XR_ITS ---
WS: [id number] XR chest 2V* [id number] REASON FOR EXAM: cough FINDINGS: Mild to moderate tortuosity and ectasia of the aortic arch and thoracic aorta. Heart size at the upper limits of normal. Calcified granulomatous disease bilaterally. Eventration versus elevation of the right hemidiaphragm. No acute pulmonary parenchymal or pleural abnormality is identified. Mild degenerative spondylosis in the mid and lower thoracic spine. XR/XR chest 2V* [id number] IMPRESSION: No acute chest abnormality.
== END 2025-01-10 15:03 | disposition home or self-care (01) ==
LOC: RAD 15:03
PROVIDERS: PCP Family Medicine; Visit Provider Family Medicine
DX: R05.9 Cough, unspecified (principal); J98.4 Other disorders of lung; M47.814 Spondylosis without myelopathy or radiculopathy, thoracic region
CPT/HCPCS: 71046